=== PATIENT | male | born 1950 | race Caucasian/White ===

== ENCOUNTER → 2016-05-15 | Outpatient (REF) | payer MEDICARE, OTHER ==
[~2016-05-15] MED LIST: ALEV220C2 PO; ASPIRIN PO; GABAPOW41 PO; GLIM1TAB PO; INDAPAMIDE PO; LISIPOW PO; METFORMIN PO; NASONEX; SIMVPOW2 PO; TAMSULOSIN PO; TOPR25TA PO; VICOBULK PO
== END ==
LOC: M LAB REF 12:42
PROVIDERS: ATTEND Internal Medicine Medical Oncology
DX: C85.90 Non-Hodgkin lymphoma, unspecified, unspecified site (principal); Z79.899 Other long term (current) drug therapy

== ENCOUNTER → 2016-05-19 | Outpatient (CLI) | payer MEDICARE, OTHER ==
--- NOTE | 2016-05-20 09:21 | SLEEPCENT ---
DATE OF PROCEDURE: 05/19/2016 REQUESTING PROVIDER: Ann Mcgovern NP INTERPRETATION: Nocturnal polysomnography was performed for the titration of pressure therapy in this patient with known obstructive sleep apnea syndrome. For testing, the patient was fit with a ResMed Mirage nasal mask of standard size was used. An initial pressure of 9 cm of water pressure were applied to the circuit and the lights were extinguished. 6 hours and 43 minutes of data were reviewed. There were 343 minutes of sleep identified. Sleep latency was mildly prolonged at 14 minutes. Rapid eye movement (REM) latency was normal at 85 minutes. Sleep architecture was good. There were three REM periods noted. Overall sleep efficiency was 86%. The patient's electrocardiogram (EKG) showed a sinus rhythm with an average heart rate of 70 beats per minute. Electroencephalogram (EEG) showed fairly normal waveforms for awake and sleep. Respiratory events were best palliated with a CPAP to a pressure of +9. Persistence of limb activities was noted throughout the study, but arousals from movement events were few at 2.6 per hour. IMPRESSION: 1. Obstructive sleep apnea syndrome (G47.33). RECOMMENDATIONS: Nightly use of pressure therapy at 11 cm of water .
== END ==
LOC: M SLEEP 19:42
PROVIDERS: ATTEND Nurse Practitioner Adult Health
DX: G47.33 Obstructive sleep apnea (adult) (pediatric) (principal)

== ENCOUNTER → 2017-08-17 | Outpatient (CLI) | payer MEDICARE, OTHER ==
[~2017-08-17] MED LIST changes: -ALEV220C2 PO; -ASPIRIN PO; -GABAPOW41 PO; +GASTROGRAFIN SOLUTION 30ML (Q9963) As Ordered; -GLIM1TAB PO; -INDAPAMIDE PO; +ISOVUE-370 76% 100ML VIAL (Q9967) As Ordered; -LISIPOW PO; -METFORMIN PO; -NASONEX; -SIMVPOW2 PO; -TAMSULOSIN PO; -TOPR25TA PO; -VICOBULK PO
== END ==
LOC: M RAD 08:18
DX: R16.1 Splenomegaly, not elsewhere classified (principal); C85.90 Non-Hodgkin lymphoma, unspecified, unspecified site; R59.0 Localized enlarged lymph nodes; K76.89 Other specified diseases of liver; N28.1 Cyst of kidney, acquired
CPT/HCPCS: Q9963

== ENCOUNTER → 2017-09-30 | Outpatient (CLI) | payer MEDICARE, OTHER | LOC: M RAD 14:38 | DX: C85.93 Non-Hodgkin lymphoma, unspecified, intra-abdominal lymph nodes (principal); R16.1 Splenomegaly, not elsewhere classified; R59.1 Generalized enlarged lymph nodes | CPT/HCPCS: 74176 ==

== ENCOUNTER → 2018-02-01 | Outpatient (CLI) | payer MEDICARE, OTHER | LOC: M RAD 08:58 | DX: C85.90 Non-Hodgkin lymphoma, unspecified, unspecified site (principal) | CPT/HCPCS: Q9963 ==

== ENCOUNTER 2018-06-10 12:18 | Emergency (ER) | payer MEDICARE, OTHER ==
[~2018-06-10] VITALS: Ht 167.6 cm; Wt 97.3 kg
[~2018-06-10 12:18] MED LIST changes: +ALEV220C2 PO; +ASPI81TA85 PO; +ASPIRIN PO; +FLOM0.4C39 PO; +GABA-843 PO; +GABAPOW41 PO; -GASTROGRAFIN SOLUTION 30ML (Q9963) As Ordered; +GLIM1TAB PO; +INDA125TA PO; +INDAPAMIDE PO; -ISOVUE-370 76% 100ML VIAL (Q9967) As Ordered; +LANTINJ4 INJ; +LISI-538 PO; +LISIPOW PO; +METF10004 PO; +METFORMIN PO; +NASONEX; +SIMV20TA2 PO; +SIMVPOW2 PO; +TAMSULOSIN PO; +TOPR25TA PO; +VICOBULK PO
[2018-06-10] MEDS ORDERED: SYNT50TA (12:59)
[2018-06-10] MEDS ORDERED: LANTINJ4 SC (12:59)
[2018-06-10] MEDS ORDERED: FINA5TAB2 (12:59)
[2018-06-10] MEDS ORDERED: latanoprost (12:59)
[2018-06-10 13:06] LABS: BASO % 0.3 % (0.0-1.0); EOS # 0.1 10^3/uL (0.0-0.50); EOS % 1.4 % (0.0-3.0); HEMATOCRIT 42.5 % (42.0-52.0); HEMOGLOBIN 14.5 g/dl (13.5-17.5); LYMPH # 1.6 10^3/uL (1.5-4.5); LYMPH % 24.5 % (24.0-44.0); MEAN CORPUSCULAR HGB CONC 34.1 g/dl (32.0-36.5); MEAN CORPUSCULAR VOLUME 87.8 fl (80.0-96.0); MONO # 0.4 10^3/uL (0.0-0.8); MONO % 5.8 % (0.0-5.0); NEUTROPHILS # 4.3 10^3/uL (1.8-7.7); NEUTROPHILS % 67.1 % (36.0-66.0); PLATELET COUNT, AUTOMATED 179 10^3/uL (150-450); RED BLOOD COUNT 4.84 10^6/uL (4.30-6.10); WHITE BLOOD COUNT 6.4 10^3/uL (4.0-10.0)
[2018-06-10 13:22] LABS: INR 0.97
[2018-06-10 13:36] LABS: ALBUMIN 4.2 GM/DL (3.2-5.2); ALT/SGPT 33 U/L (12-78); BILIRUBIN,DIRECT 0.2 MG/DL (0.0-0.2); BLOOD UREA NITROGEN 20 MG/DL (7-18); CALCIUM LEVEL 8.8 MG/DL (8.8-10.2); CARBON DIOXIDE LEVEL 26 MEQ/L (21-32); CHLORIDE LEVEL 107 MEQ/L (98-107); CK-MB VALUE MASS < 1.0 NG/ML (<3.6); CPK CREATINE PHOSPHOKINASE 56 U/L (39-308); CREATININE FOR GFR 1.33 MG/DL (0.70-1.30); GLOMERULAR FILTRATION RATE 56.8 (>49); GLUCOSE, FASTING 125 MG/DL (70-100); MB/CK RELATIVE INDEX 1.79 (< OR =4); SODIUM LEVEL 140 MEQ/L (136-145); TOTAL PROTEIN 6.7 GM/DL (6.4-8.2)
[2018-06-10 13:37] LABS: FREE T4 1.15 NG/DL (0.76-1.46); LIPASE 453 U/L (73-393); TROPONIN I < 0.02 NG/ML (< 0.10)
--- NOTE | 2018-06-10 14:02 | REP ---
CHEST PA AND LATERAL: 06/10/2018. Clinical history: Chest pain. Comparison: 04/27/2015. Findings: Lungs are adequately inflated. There is no pleural effusion, lateral pleural thickening, apical scarring, dense consolidation or parenchymal mass. Heart size not enlarged. There is epicardial fat pad along the left heart border. There is no vascular redistribution or pulmonary edema. The aorta and airway are intact. Bony thorax shows some marginal osteophytes without compression deformity. No free air. Impression: 1. No acute cardiopulmonary disease, stable chest. Electronically Signed by Bashir Fairchild MD 06/10/2018 07:30 P
--- NOTE | 2018-06-10 14:15 | REP ---
KUB, ONE VIEW: HISTORY: Chest pain. A small amount of air is present in the intestine. There are no air fluid levels or dilated loops of intestine. There is no pneumoperitoneum. IMPRESSION: Nonspecific bowel gas pattern. Electronically Signed by Sundeep Morin MD 06/10/2018 02:19 P
[2018-06-10 14:34] VITALS: BP 125/66
--- NOTE | 2018-06-10 18:10 | ECGEPIP ---
Stationary ECG Study [facility] - ED Test Date: 2018-06-10 Pat Name: TENZIN CH Department: Room: - Gender: M Brim Flexer: CAMILO : 1950 Requested By: FLOR Riojas Order Number: [id number] Reading MD: Myles Jackson Measurements Intervals [place] Rate: 79 P: 64 AL: 174 QRS: 10 QRSD: 85 T: 72 QT: 329 QTc: 378 Interpretive Statements SINUS RHYTHM LOW QRS VOLTAGE IN PRECORDIAL LEADS NONSPECIFIC T-WAVE ABNORMALITY POSSIBLE PRIOR INFERIOR INFARCT SIMILAR TO 06/07/12 Electronically Signed On 06-10-2018 18:10:25 EST by Myles Jackson
== END 2018-06-10 14:36 | disposition home or self-care (01) ==
LOC: M ED 12:18
DX: R10.9 Unspecified abdominal pain (principal); I10 Essential (primary) hypertension; E11.9 Type 2 diabetes mellitus without complications; E78.5 Hyperlipidemia, unspecified; C85.80 Other specified types of non-Hodgkin lymphoma, unspecified site; Z92.21 Personal history of antineoplastic chemotherapy; I30.9 Acute pericarditis, unspecified; Z79.82 Long term (current) use of aspirin; Z79.4 Long term (current) use of insulin; Z79.899 Other long term (current) drug therapy

== ENCOUNTER → 2018-09-28 | Outpatient (CLI) | payer MEDICARE, OTHER ==
[~2018-09-28] MED LIST changes: +FINA5TAB2; +LANTINJ4 SC; +METO-1 PO; +SYNT50TA; -TOPR25TA PO; +latanoprost
--- NOTE | 2018-09-28 10:28 | REP ---
RIGHT SHOULDER, THREE VIEWS: HISTORY: Pain. There is no acute fracture or dislocation. The glenohumeral joint space is normal in appearance. There is mild narrowing of the acromioclavicular joint space with associated osteophyte formation. IMPRESSION: Degenerative change as described above. Electronically Signed by Sundeep Morin MD 09/28/2018 10:31 A
== END ==
LOC: M WUC 09:45
PROVIDERS: ATTEND Physician Assistant
DX: M19.011 Primary osteoarthritis, right shoulder (principal); M25.711 Osteophyte, right shoulder

== ENCOUNTER → 2018-12-19 | Outpatient (CLI) | payer MEDICARE, OTHER ==
--- NOTE | 2018-12-19 12:49 | REP ---
Clinical: Cough . Comparison: 06/10/2018 . Findings: The mediastinum and cardiac silhouette are stable and cardiomegaly is again noted. The lung lee demonstrate chronic interstitial changes without acute consolidation, effusion, or pneumothorax. Skeletal structures are intact. Impression: No acute cardiopulmonary process appreciated. Electronically Signed by Ray Faulkner MD 12/19/2018 12:40 P
== END ==
LOC: M SMT 12:17 → M WUC 12:17
PROVIDERS: ATTEND Family Medicine
DX: R05 Cough (principal)

== ENCOUNTER → 2019-04-27 | Outpatient (CLI) | payer MEDICARE, OTHER ==
[~2019-04-27] MED LIST changes: +GLIM1TAB2 PO; -SIMV20TA2 PO; +SIMV20TA22 PO
--- NOTE | 2019-04-27 10:36 | REP ---
ULTRASOUND ABDOMEN: Real-time sonographic evaluation of the abdomen was performed. Gallbladder demonstrates no evidence of intraluminal sludge or calculi, wall thickening or pericholecystic fluid. There is no significant intrahepatic or extrahepatic biliary dilation. Common bile duct is upper limits of normal in diameter at 7 mm. The liver demonstrates heterogenous increased echotexture diffusely suggesting diffuse fibro fatty infiltration. There are multiple cystic structures as seen on prior CT of 11/10/2018, the largest is in the left lobe with internal thin septations 2.7 x 2.9 x 1.7 cm and right lobe 4.6 x 4.5 x 4.2 cm. Visualized pancreas is grossly unremarkable but not well seen due to overlying bowel gas. Spleen is mild to moderately enlarged with no intrinsic lesion identified. It measures 13.9 x 6.4 x 13.5 cm for a splenic index of 1201. Kidneys are normal in size and echotexture, right kidney measuring 11.5 x 7.0 x 6.0 cm and left kidney 11.5 x 6.0 x 5.6 cm. There is no hydronephrosis bilaterally. 7 mm cyst is seen in the left lower pole. Abdominal aorta could not be visualized. No ascites is seen. IMPRESSION: Diffuse fibrofatty infiltration of the liver with multiple liver cysts. Mild to moderate splenomegaly. Electronically Signed by Trent Banda MD 04/27/2019 08:01 P
== END ==
LOC: M RAD 08:43
PROVIDERS: ATTEND Internal Medicine Hematology
DX: C83.07 Small cell B-cell lymphoma, spleen (principal)

== ENCOUNTER → 2019-12-11 | Outpatient (REF) | payer MEDICARE, OTHER ==
[~2019-12-11] MED LIST changes: -ASPI81TA85 PO; +ASPI81TA86 PO; -GLIM1TAB2 PO; +GLIM1TAB4 PO; +XALA0.007 OU
== END ==
LOC: M LAB REF 13:00
PROVIDERS: ATTEND Nurse Practitioner Family
DX: M54.5 Low back pain (principal)

== ENCOUNTER → 2020-03-06 | Outpatient (CLI) | payer SELFPAY | LOC: M LABSMTC 10:18 | PROVIDERS: ATTEND Pediatrics | DX: Z20.828 Contact with and (suspected) exposure to other viral communicable diseases (principal) ==

== ENCOUNTER 2021-02-18 09:45 | Emergency (ER) | payer MEDICARE, OTHER ==
[~2021-02-18] VITALS: Ht 167.6 cm; Wt 102.1 kg
[~2021-02-18 09:45] MED LIST changes: +ECOT81TA5 PO; +GABA-282 PO; -GABA-843 PO; -LISI-538 PO; +LISI20TA33 PO
--- OUTSIDE RECORDS SUMMARY | 2021-02-18 09:50 | CCD | Continuity of Care Document ---
Author Author Kermit RIVERA M.D. 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 Onset: 015 Pure hypercholesterolemia Lars Rivera M.D. Onset: 2014 Benign essential hypertension Lars Rivera M.D. Onset: Obstructive sleep apnea syndrome Lars Rivera M.D. Onset: 09/12/2014 Allergic rhinitis Lars Rivera M.D. Onset: 09/12/2014 Degenerative joint disease involving multiple joints Lars Rivera M.D. Onset: 09/12/2014 Splenomegaly Lars Rivera M.D. Onset: 09/12/2014 Benign localized hyperplasia of prostate Pedro Luis Flaherty Onset: 09/12/2014 Anemia Lars Rivera M.D. Onset: 09/12/2014 Adenomatous polyp of colon Lars Rivera M.D. Onset: 09/13 Note: 2 new adenomatous polyps on colono scopy 08/2014 Dr Wilson - noted by him repeat 3 yrs or PRN. Essential hypertension Lars Rivera M.D. Onset: 5 Benign prostatic hyperplasia without outflow obstruction Calixto Rivera M.D. Onset: 03/19/2015 Brachial neuritis Lars Rivera M.D. Onset: 03/19/2015 Unspecified osteoarthritis, unspecified site Lars Rivera M.D. Onset: 03/19/2015 Social History Type Date Description Comments Sex Unknown ETOH Use Rarely consumes alcohol Tobacco Use Start: Unknown Patient has never smoked Allergies and adverse reactions Description No Known Drug Allergies Medications Active Medications SIG Qnty Indications Ordering Provide r Date Onetouch Club Lancets [place] Misc test blood sugar twice a day dx E11.9 200units Lars monzon M.D. 01/07/2021 Synthroid 75mcg Tablets [place] 90tabs Lars Rivera M.D. 12/17/2018 Onetouch Ultra 2 w/Device Kit test twice a day and as directed e11.9 1units E78.00 Lars Rivera M.D. 0 12/17/2018 BD Autoshield Duo 30G X 5 mm Misc use twice a day E11.9 180units E11.9 Lars Rivera M.D. 018 Zyrtec Allergy 10mg Capsules 1 by mouth every day 30caps Lars Rivera M.D. 04/07/2017 Lantus Solostar 100U nit/ML Solution Pen-Inject 14 units in the in the morning and 12 units at night daily 45ml Lars Rivera M.D. 06/19/2015 Glimepiride 1mg Tablets 1 in in the morning and 1 with dinner 180tabs Lars Rivera M.D. 0 09/12/2014 Lisinopril 20mg Tablets 1 by mouth every at night 90tabs Lars Rivera M.D. 09/12/2014 Tamsulosin HCL 0.4mg Capsules 2 daily 1/2 hour after same meal in the at night 180eliana jackson M.D. 09/12/2014 Finasteride 5mg Tablets 1 by mouth every day 90tabs Lars Rivera M.D. 09/12/2014 Gabapentin 300mg Capsules 1 by mouth every morning 90caps Lars Rivera M.D. 09/12/2014 Aspir-[address] 1 by mouth every day 90tabs Lars F. White, M.D. 09/12/2014 Ibuprofen 800mg Tablets as needed 90taamandeep Rivera M.D. 09/12/2014 Indapamide 1.25mg Tablets 1 by mouth every night 90taamandeep Rivera M.D. 09/12/2014 Metformin HCL 1000mg Tablets take one tablet by mouth twice a day 180tabs Lars Rivera M.D. 09/12/2014 Fluticasone Propionate 50mcg/Act Suspension 2 sprays each nostril daily Unknown Medications Administered in Office Medication SIG Qnty Indications Ordering Provider Date Administration Of Flu Vaccine Inj ection Lars Rivera M.D. 03/19/2016 Administration Of Flu Vaccine Inj ection Lars Rivera M.D. 03/19/2015 Immunizations CPT Code Status Date Vaccine Lot # [id number] Given 01/31/2020 Shingrix Zoster Vaccine (HZV), Recombinant, Subunit, Adjuvanted U-Flu Given 01/18/2020 Influenza,Unspecified U-Flu Given 02/07/2018 Influenza,Unspecified U-Flu Given 02/28/2017 Influenza,Unspecified Q2037 Given 03/19/2016 Fluvirin Virus Vaccine 39930 01 Q2037 Given 03/19/2015 Fluvirin Virus Vaccine 69045 01 99001 Given 01/18/2014 Influenza Virus Vaccine 48842 Given 05/27/2013 Pneumovax 23 [id number] Given 05/27/2012 Adacel- Tetanus Diphtheria P ertussis 02573 Refused 01/18/2014 Zoster Vaccine 16776 Refused 05/27/2013 Influenza Virus Vaccine Vital Signs Date Vital Result Comment 01/07/2021 10:55am BP Systolic 128 mmHg BP Diastolic 70 mmHg Heart Rate 64 /min Height 65.5 inches 5'5.50" Weight 223.00 lb BMI (Body Mass Index) 36.5 kg/m2 08/13/2020 10:29am BP Systolic 122 mmHg BP Diastolic 68 mmHg Heart Rate 72 /min Height 65.5 inches 5'5.50" Weight 230.00 lb BMI (Body Mass Index) 37.7 kg/m2 Results Test Acquired Date Facility Test Result H/L Range Note Microalbumin/Creatinine Urine 01/07/2021 [facility], [place] [facility]: [place] [address] [phone] Microalbumin Urine 8.1 mg/L 1.3 - 20.0 Urine Creatinine 69.8 mg/dL 30.0 - 125.0 Microalb/Creat Ratio 11.6 ug/mg 0.0 - 30.0 Complete Blood Count 01/04/2021 [facility], [place]: [place] [address] [phone] WBC 4.6 x10*3/UL 4.1 - 10.9 RBC 4.73 x10*6/UL 4.20 - 6.30 Hemoglobin 14.1 g/dL 12.0 - 18.0 Hematocrit 41.4 % 37.0 - 51.0 MCV 87.5 fL 80.0 - 97.0 MCH 29.9 pg 26.0 - 32.0 MCHC 34.2 g/dL 31.0 - 38.0 RDW 12.7 % 11.6 - 13.7 PLT 182 x10*3/UL 140 - 440 MPV 8.4 FL 7.8 - 11.0 Lymph % 33.9 % 10.0 - 58.5 Mid % 6.1 % 1.7 - 9.3 Neut % 60.0 % 37.0 - 92.0 Lymph # 1.5 x10*3/UL 0.6 - 4.1 Mid # 0.4 x10*3/UL 0.1 - 0.6 Neut # 2.7 x10*3/UL 2.0 - 7.8 A1c 01/04/2021 [facility] , [place]: [place] [address] [phone] Hba1c 6.7 % High <5.7 1 Est Avg Glucose 146 mg/dL High 60 - 110 Comprehensive Chem Profile 01/04/2021 [facility], [place]: [place] [address] [phone] Glucose 122 mg/dL High 74 - 99 2 BUN 22 mg/dL High 7 - 18 Creatinine 1.1 mg/dL 0.6 - 1.3 Sodium 142 mEq/L 136 - 145 Potassium 4.1 mEq/L 3.5 - 5.1 Chloride 106 mEq/L 98 - 107 Carbon Dioxide 31 mEq/L 21 - 32 Calcium 9.0 mg/dL 8.5 - 10.1 Alk. Phosphatase 63 mg/dL 46 - 116 Total Bilirubin 0.8 mg/dL 0.2 - 1.0 Ast (Sgot) 19 U/L 15 - 37 Alt (SGPT) 54 U/L 12 - 78 Albumin 3.8 g/dL 3.4 - 5.0 Total Protein 6.3 g/dL Low 6.4 - 8.2 A/G Ratio 1.52 CALC 1.00 - 1.90 GFR >= 60 mL/min >60 GFR >= 60 mL/min >60 3 Lipid Profile 01/04/2021 [facility] , [place]: Dr [place]ise[place], [place] [id number] [phone] Cholesterol 188 mg/dL 131 - 200 Triglycerides 261 mg/dL High 30 - 150 HDL Cholesterol 37 mg/dL 35 - 60 LDL (Calculated) 99 CALC 50 - 159 Laboratory test finding 01/04/2021 [facility], [place]: [place] [address] [phone] Thyroid Stimulating Hormone 3.75 uIU/mL High 0.3 6 - 3.74 Laboratory test finding 01/04/2021 [facility] [employer] [place]: [place] [address] [phone] PSA 1.42 ng/mL <4.00 4 Complete Blood Count 08/10/2020 [facility], [place]: Dr Eliseo [place], [place] [id number] [phone] WBC 5.2 x10*3/UL 4.1 - 10.9 RBC 5.04 x10*6/UL 4.20 - 6.30 Hemoglobin 15.0 g/dL 12.0 - 18.0 Hematocrit 43.6 % 37.0 - 51.0 MCV 86.6 fL 80.0 - 97.0 MCH 29.7 pg 26.0 - 32.0 MCHC 34.3 g/dL 31.0 - 38.0 RDW 13.1 % 11.6 - 13.7 PLT 205 x10*3/UL 140 - 440 MPV 8.7 FL 7.8 - 11.0 Lymph % 28.3 % 10.0 - 58.5 Mid % 5.7 % 1.7 - 9.3 Neut % 66.0 % 37.0 - 92.0 Lymph # 1.4 x10*3/UL 0.6 - 4.1 Mid # 0.4 x10*3/UL 0.1 - 0.6 Neut # 3.4 x10*3/UL 2.0 - 7.8 A1c 08/10/2020 [facility] , [place]: [place] [address] [phone] Hba1c 7.0 % High <5.7 5 Est Avg Glucose 154 mg/dL High 60 - 110 Comprehensive Chem Profile 08/10/2020 [facility], [place]: [place] [address] [phone] Glucose 168 mg/dL High 74 - 99 6 BUN 25 mg/dL High 7 - 18 Creatinine 1.2 mg/dL 0.6 - 1.3 Sodium 139 mEq/L 136 - 145 Potassium 3.9 mEq/L 3.5 - 5.1 Chloride 102 mEq/L 98 - 107 Carbon Dioxide 29 mEq/L 21 - 32 Calcium 8.9 mg/dL 8.5 - 10.1 Alk. Phosphatase 70 mg/dL 46 - 116 Total Bilirubin 0.9 mg/dL 0.2 - 1.0 Ast (Sgot) 20 U/L 15 - 37 Alt (SGPT) 48 U/L 12 - 78 Albumin 4.2 g/dL 3.4 - 5.0 Total Protein 6.9 g/dL 6.4 - 8.2 A/G Ratio 1.56 CALC 1.00 - 1.90 GFR 60 mL/min Low >60 GFR >= 60 mL/min >60 7 Lipid Profile 08/10/2020 [facility] , [place]: [place] [address] [phone] Cholesterol 209 mg/dL High 131 - 200 Triglycerides 338 mg/dL High 30 - 150 HDL Cholesterol 37 mg/dL 35 - 60 LDL (Calculated) 104 CALC 50 - 159 Laboratory test finding 08/10/2020 [facility] [employer] [place] [employer]: [place] [address] [phone] Thyroid Stimulating Hormone 3.73 uIU/mL 0.3 6 - 3.74 1 Lab Result Notes: Pre-Diabetes 5.7 - 6.4 % Diabetes = or > 6.5% 2 100-125 mg/dL PRE-DIABET ES/FASTING >126 mg/dL DIABETES/FASTING 3 CHRONIC KIDNEY DISEASE STAGI NG PER NKF STAGE I & II GFR >= 60 NORMAL TO MILDLY DECREASED STAGE III GFR 30-59 MODERATELY DECREASED STAGE IV GFR 15-29 SEVERELY DECREASED STAGE V GFR <15 VERY LITTLE GFR LEFT ESRD GFR <15 ON HAND ROUNDER 4 This assay was performed on the [email or web address] EXL using the B- Galactosidase/CPRG methodology and should not be compared interchangeably with other methods. The PSA should not be used alone as a screening test for the presence or absence of malignant disease. 5 Lab Result Notes: Pre-Diabetes 5.7 - 6.4 % Diabetes = or > 6.5% 6 100-125 mg/dL PRE-DIABET ES/FASTING >126 mg/dL DIABETES/FASTING 7 CHRONIC KIDNEY DISEASE STAGI NG PER NKF STAGE I & II GFR >= 60 NORMAL TO MILDLY DECREASED STAGE III GFR 30-59 MODERATELY DECREASED STAGE IV GFR 15-29 SEVERELY DECREASED STAGE V GFR <15 VERY LITTLE GFR LEFT ESRD GFR <15 ON HAND ROUNDER Procedures Date Code Description Status 08/13/2020 21567 Office/Outpatient Established Mo d MDM 30-39 Min Completed 05/28/2018 [id number] Diabetic Retinal Eye Exam [facility] 05/29/2017 [id number] Diabetic Retinal Eye Exam [facility] 09/05/2014 [id number] Colonoscopy Completed Medical Devices Description No Information Available Encounters Type Date Location Provider Dx Diagnosis Office Visit 08/13/2020 10:30a [facility] Lars Rivera M.D. 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 01/07/2021 I10 Essential (primary) hypertension Lars Rivera M.D. 01/07/2021 E03.9 Hypothyroidism, unspecified Tata Rivera M.D. 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 01/07/2021 N40.0 Benign prostatic hyperplasia wit hout lower urinary tract sym Lars Rivera M.D. 01/07/2021 J30.9 Allergic rhinitis, unspecified Bryan Rivera M.D. 01/07/2021 E11.9 Type 2 diabetes mellitus without complications Lars Rivera M.D. 01/07/2021 G47.33 Obstructive sleep apnea (adult) (pediatric) Lars Rivera M.D. 01/07/2021 M19.90 Unspecified osteoarthritis, unsp ecified site Lars Rivera M.D. 01/07/2021 R23.8 Other skin changes Lars gallegos M.D. 01/07/2021 H40.9 Unspecified glaucoma Lars jackson M.D. 01/07/2021 M54.5 Low back pain Lars Rivera M.D. 01/04/2021 E11.65 Type 2 diabetes mellitus with hy perglycemia Lars Rivera M.D. 01/04/2021 E11.65 Type 2 diabetes mellitus with hy perglycemia Lab Schedule 01/04/2021 Z79.4 technician terminal and repeater (current) use of insul in Lars Rivera M.D. 01/04/2021 Z79.4 [facility]PC (current) use of insul in Lab Schedule 01/04/2021 I10 Essential (primary) hypertension Lars Rivera M.D. 01/04/2021 I10 Essential (primary) hypertension Lab Schedule 01/04/2021 E78.00 Pure hypercholesterolemia, unspe cified Lars Rivera M.D. 01/04/2021 E78.00 Pure hypercholesterolemia, unspe cified Lab Schedule 01/04/2021 E03.9 Hypothyroidism, unspecified Tata Rivera M.D. 01/04/2021 E03.9 Hypothyroidism, unspecified Lab Schedule 01/04/2021 Z12.5 Encounter for screening for hetal gnant neoplasm of prostate Lars Rivera M.D. 01/04/2021 Z12.5 Encounter for screening for hetal gnant neoplasm of prostate Lab Schedule 08/13/2020 E11.65 Type 2 diabetes mellitus with hy perglycemia Lars Rivera M.D. 08/13/2020 Z79.4 technician terminal and repeater (current) use of insul in Lars Rivera M.D. 08/13/2020 E78.00 Pure hypercholesterolemia, unspe cified Lars Rivera M.D. 08/13/2020 I10 Essential (primary) hypertension Lars Rivera M.D. 08/13/2020 E03.9 Hypothyroidism, unspecified Tata Rivera M.D. 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 08/13/2020 N40.0 Benign prostatic hyperplasia wit hout lower urinary tract sym Lars Rivera M.D. 08/13/2020 J30.9 Allergic rhinitis, unspecified Bryan Rivera M.D. 08/13/2020 H40.9 Unspecified glaucoma Lars jackson M.D. 08/13/2020 G47.33 Obstructive sleep apnea (adult) (pediatric) Lars Rivera M.D. 08/13/2020 M19.90 [facility] M.[facility]. 08/10/2020 E11.9 Type 2 diabetes mellitus without complications Lars Rivera M.D. 08/10/2020 E11.9 Type 2 diabetes mellitus without complications Lab Schedule 08/10/2020 I10 Essential (primary) hypertension Lars Rivera M.D. 08/10/2020 I10 Essential (primary) hypertension Lab Schedule 08/10/2020 E78.00 Pure hypercholesterolemia, unspe cified Lars Rivera M.D. 08/10/2020 E78.00 Pure hypercholesterolemia, unspe cified Lab Schedule 08/10/2020 E03.9 Hypothyroidism, unspecified Tata Rivera M.D. 08/10/2020 E03.9 Hypothyroidism, unspecified Lab Schedule Plan of Treatment Future Appointment(s):* 09/06/2021 8:10 am - Lab Schedule at [facility] * 09/11/2021 9:30 am - Lars Rivera M.D. at [facility] * 08/21/2021 9:00 am - ROSEMARY Mann at [facility] 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
--- OUTSIDE RECORDS SUMMARY | 2021-02-18 09:50 | CCD | Continuity of Care Document ---
Author Author Kermit RIVERA M.D. Organization Unknown Address [phone] [address] Phone [phone] Care Team Providers Care Grease Renderer Name Role Phone Lars Rivera MD AUTM [phone] Arash Bond MD AUTM [phone] Gerson Carter MD AUTM [phone] Leana Isabel OD AUTM Unavailable Problems Active [...] Tablets 1 in in the morning and 2 with dinner 270tabs Lars Rivera M.D. 0 09/12/2014 Lisinopril 20mg Tablets 1 by mouth every at night 90tabs Lars Rivera M.D. 09/12/2014 Tamsulosin HCL 0.4mg Capsules 2 daily 1/2 hour after same meal in the at night 180eliana jackson M.D. 09/12/2014 Finasteride 5mg Tablets 1 by mouth every day 90tabs Lars Rivera M.D. 09/12/2014 Gabapentin 300mg Capsules 1 by mouth every morning 90capeliza Rivera M.D. 09/12/2014 Aspir-[address] [...] CPT Code Status Date Vaccine Lot # 33471 Given 01/31/2020 Shingrix Zoster Vaccine (HZV), Recombinant, Subunit, Adjuvanted U-Flu Given 01/18/2020 Influenza,Unspecified U-Flu Given 02/07/2018 Influenza,Unspecified U-Flu Given 02/28/2017 Influenza,Unspecified [id number] Given 03/19/2016 Fluvirin Virus Vaccine 91724 01 Q2037 Given 03/19/2015 Fluvirin Virus Vaccine 65022 01 93592 Given 01/18/2014 Influenza Virus Vaccine 42821 Given 05/27/2013 Pneumovax 23 75705 Given 05/27/2012 Adacel- Tetanus Diphtheria P ertussis 71828 Refused 01/18/2014 Zoster Vaccine 54427 Refused 05/27/2013 Influenza Virus Vaccine Vital Signs [...] Result H/L Range Note Microalbumin/Creatinine Urine 01/07/2021 [facility], Cook Mess: [place] [address] [phone] Microalbumin Urine 8.1 mg/L 1.3 - 20.0 Urine Creatinine 69.8 mg/dL 30.0 - 125.0 Microalb/Creat Ratio 11.6 ug/mg 0.0 - 30.0 Complete Blood Count 01/04/2021 [facility], Cook Mess: [place] [address] [phone] WBC 4.6 x10*3/UL 4.1 - 10.9 RBC [...] 2.7 x10*3/UL 2.0 - 7.8 A1c 01/04/2021 [facility] , Cook Mess: [place] [address] [phone] Hba1c 6.7 % High <5.7 1 Est Avg Glucose 146 mg/dL High 60 - 110 Comprehensive Chem Profile 01/04/2021 [facility], Cook Mess: [place] [address] [phone] Glucose 122 mg/dL High 74 - 99 [...] 60 mL/min >60 3 Lipid Profile [facility]/04[facility]2021 [facility] [place] [id number] [phone] Cholesterol 188 mg/dL 131 - 200 Triglycerides 261 mg/dL High 30 - 150 HDL Cholesterol 37 mg/dL 35 - 60 LDL (Calculated) 99 CALC 50 - 159 Laboratory test finding 01/04/2021 [facility] [employer] [facility] Cook Mess: [place] [address] [phone] Thyroid Stimulating Hormone 3.75 uIU/mL High 0.3 6 - 3.74 Laboratory test finding 01/04/2021 [facility] [employer] [facility] Cook Mess: [place] [address] [phone] PSA 1.42 ng/mL <4.00 4 1 Lab Result Notes: Pre-Diabetes 5.7 - [...] LITTLE GFR LEFT ESRD GFR <15 ON WEB SITE SPECIALIST 4 This assay was performed on the Siem[employer] EXL using the B- Galactosidase/CPRG methodology and should not be compared interchangeably with other methods. The PSA should not be used alone as a screening test for the presence or absence of malignant disease. Procedures Date Code Description Status 05/28/2018 [id number] Diabetic Retinal Eye Exam Comple cameron 05/29/2017 [id number] Diabetic Retinal Eye Exam Comple cameron 09/05/2014 [id number] Colonoscopy Completed Medical Devices Description No Information Available Encounters Description No Information Available Assessments Date Code Description Provider 01/07/2021 E78.00 Pure hypercholesterolemia, unspe cified Lars Rivera M.D. 01/07/2021 I10 Essential (primary) hypertension Lars Rivera M.D. 01/07/2021 E03.9 Hypothyroidism, unspecified Tata Rivera M.D. 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 01/07/2021 N40.0 Benign prostatic hyperplasia wit hout lower urinary tract sym Lars Rivera M.D. 01/07/2021 J30.9 Allergic rhinitis, unspecified Bryan Rivera M.D. 01/07/2021 E11.9 Type 2 diabetes mellitus without complications Lars Rivera M.D. 01/07/2021 G47.33 Obstructive sleep apnea (adult) (pediatric) Lars Rivera M.D. 01/07/2021 M19.90 Unspecified osteoarthritis, [facility] ecified site Lars Rviera M.D. 01/07/2021 R23.8 Other skin changes Lars gallegos M.D. 01/07/2021 H40.9 Unspecified glaucoma Lars jackson M.D. 01/07/2021 M54.5 Low back pain Lars Rivera M.D. 01/04/2021 E11.65 Type 2 diabetes mellitus with hy perglycemia Lars Rivera M.D. 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 * 09/11/2021 9:30 am - Lars Rivera M.D. at [facility] * 08/21/2021 9:00 am - ROSEMARY Mann [facility] 01/07/2021 - Lars Rivera M.D.* E78.00 [...]
--- OUTSIDE RECORDS SUMMARY | 2021-02-18 09:50 | CCD | Continuity of Care Document ---
Author Author Lab Schedule, Kermit French Organization Unknown Address [address] [address] Phone Unavailable Care Team Providers Care Layout Worker Name Role Phone Lars Lindquist MD AUTM [phone] Arash Bond MD AUTM [phone] Gerson Carter MD AUTM [phone] Leana Isabel OD AUTM Unavailable Problems Active Problems Provider Date Type 2 diabetes mellitus Lars Lindquist M.D. Onset: 015 Pure hypercholesterolemia Lars Lindquist M.D. Onset: 2014 Benign essential hypertension Lars Lindquist M.D. Onset: Obstructive sleep apnea syndrome Lars Lindquist M.D. Onset: 09/12/2014 Allergic rhinitis Lars Lindquist M.D. Onset: 09/12/2014 Degenerative joint disease involving multiple joints Lars Lindquist M.D. Onset: 09/12/2014 Splenomegaly Lars Lindquist M.D. Onset: 09/12/2014 Benign localized hyperplasia of prostate Pedro Luis Flaherty Onset: 09/12/2014 Anemia Lars Lindquist M.D. Onset: 09/12/2014 Adenomatous polyp of colon Lars Lindquist M.D. Onset: 09/13 Note: 2 new adenomatous polyps on colono scopy 08/2014 Dr Wilson - noted by him repeat 3 yrs or PRN. Essential hypertension Lars Lindquist M.D. Onset: 5 Benign prostatic hyperplasia without outflow obstruction Calixto Lindquist M.D. Onset: 03/19/2015 Brachial neuritis Lars Lindquist M.D. Onset: 03/19/2015 Unspecified osteoarthritis, unspecified site Lars Lindquist M.D. Onset: 03/19/2015 Social History Type Date [...] 75mcg Tablets [place] 90tabs Lars Lindquist M.D. 12/17/2018 Onetouch Ultra 2 w/Device Kit test twice a day and as directed e11.9 1units E78.00 Lars Lindquist M.D. 0 12/17/2018 BD Autoshield Duo 30G X 5 mm Misc use twice a day E11.9 180units E11.9 Lars Lindquist M.D. 018 Zyrtec Allergy 10mg Capsules 1 by mouth every day 30caps Lars Lindquist M.D. 04/07/2017 Lantus Solostar 100U nit/ML Solution Pen-Inject 14 units in the in the morning and 12 units at night daily 45ml Lars Lindquist M.D. 06/19/2015 Glimepiride 1mg Tablets 1 in in the morning and 1 with dinner 180tabs Lars Lindquist M.D. 0 09/12/2014 Lisinopril 20mg Tablets 1 by mouth every at night 90tabs Lars Lindquist M.D. 09/12/2014 Tamsulosin HCL 0.4mg Capsules 2 daily 1/2 hour after same meal in the at night 180caps Lars jackson M.D. 09/12/2014 Finasteride 5mg Tablets 1 by mouth every day 90tabs Lars Lindquist M.D. 09/12/2014 Gabapentin 300mg Capsules 1 by mouth every morning 90caps Lars Lindquist M.D. 09/12/2014 [address]ir-[address] 1 by mouth every day 90tabs Lars Lindquist M.D. 09/12/2014 Ibuprofen 800mg Tablets as needed 90tabs Lars Lindquist M.D. 09/12/2014 Indapamide 1.25mg Tablets 1 by mouth every night 90tabs Lars Lindquist M.D. 09/12/2014 Metformin HCL 1000mg Tablets take one tablet by mouth twice a day 180tabs Lars Lindquist M.D. 09/12/2014 Fluticasone Propionate 50mcg/Act Suspension 2 sprays each nostril daily Unknown Medications Administered in Office Medication SIG Qnty Indications Ordering Provider Date Administration Of Flu Vaccine Inj mignonion Lars Lindquist M.D. 03/19/2016 Administration Of Flu Vaccine Inj ection Lars Lindquist M.D. 03/19/2015 Immunizations CPT Code Status Date Vaccine Lot # [id number] Given 01/31/2020 Shingrix Zoster Vaccine (HZV), Recombinant, Subunit, Adjuvanted U-Flu Given 01/18/2020 Influenza,Unspecified U-Flu Given 02/07/2018 Influenza,Unspecified U-Flu Given 02/28/2017 Influenza,Unspecified Q2037 Given 03/19/2016 Fluvirin Virus Vaccine 67119 01 Q2037 Given 03/19/2015 Fluvirin Virus Vaccine 02969 01 37644 Given 01/18/2014 Influenza Virus Vaccine 57137 Given 05/27/2013 Pneumovax 23 30443 Given 05/27/2012 Adacel- Tetanus Diphtheria P ertussis 64177 Refused 01/18/2014 Zoster Vaccine 87562 Refused 05/27/2013 Influenza Virus Vaccine Vital Signs [...] Result H/L Range Note Microalbumin/Creatinine Urine 01/07/2021 [facility] Medical Liaison: [place] [address] [phone] Microalbumin Urine 8.1 mg/L 1.3 - 20.0 Urine Creatinine 69.8 mg/dL 30.0 - 125.0 Microalb/Creat Ratio 11.6 ug/mg 0.0 - 30.0 Complete Blood Count 01/04/2021 [facility] Medical Liaison: [place] [address] [phone] WBC 4.6 x10*3/UL 4.1 - 10.9 RBC [...] 2.7 x10*3/UL 2.0 - 7.8 A1c 01/04/2021 [facility] Medical Liaison: [place] [address] [phone] Hba1c 6.7 % High <5.7 1 Est Avg Glucose 146 mg/dL High 60 - 110 Comprehensive Chem Profile 01/04/2021 [facility] Medical Liaison: [place] [address] [phone] Glucose 122 mg/dL High 74 - 99 [...] 60 mL/min >60 3 Lipid Profile 01/04/2021 [facility] Medical Liaison: Dr [place] [id number] [phone] Cholesterol 188 mg/dL 131 - 200 Triglycerides 261 mg/dL High 30 - 150 HDL Cholesterol 37 mg/dL 35 - 60 LDL (Calculated) 99 CALC 50 - 159 Laboratory test finding 01/04/2021 [facility] Medical Liaison: [place] [address] [phone] Thyroid Stimulating Hormone 3.75 uIU/mL High 0.3 6 - 3.74 Laboratory test finding 01/04/2021 [facility] Ackerman Medical Liaison: [place] [address] [phone] PSA 1.42 ng/mL <4.00 4 Complete Blood Count 08/10/2020 [facility]man Medical Liaison: Dr Eliseo Mult[place] [address] [phone] WBC 5.2 x10*3/UL 4.1 - 10.9 RBC [...] 3.4 x10*3/UL 2.0 - 7.8 A1c 08/10/2020 [facility] , Medical Liaison: [place] [address] [phone] Hba1c 7.0 % High <5.7 5 Est Avg Glucose 154 mg/dL High 60 - 110 Comprehensive Chem Profile 08/10/2020 [facility], Medical Liaison: [place] [address] [phone] Glucose 168 mg/dL High 74 - 99 [...] 60 mL/min >60 7 Lipid Profile 08/10/2020 [facility] , Medical Liaison: Dr [place] [address] [phone] Cholesterol 209 mg/dL High 131 - 200 Triglycerides 338 mg/dL High 30 - 150 HDL Cholesterol 37 mg/dL 35 - 60 LDL (Calculated) 104 CALC 50 - 159 Laboratory test finding 08/10/2020 [facility] [employer] [facility] valdovinos Medical Liaison: [place] [address] [phone] Thyroid Stimulating Hormone 3.73 uIU/mL 0.3 6 [...] LITTLE GFR LEFT ESRD GFR <15 ON CUTTER AND PRESSER 4 This assay was performed on the [employer] EXL using the B- Galactosidase/CPRG methodology and [...] LITTLE GFR LEFT ESRD GFR <15 ON CUTTER AND PRESSER Procedures Date Code Description Status 08/13/2020 18777 Office/Outpatient Established Mo d MDM 30-39 Min Completed 05/28/2018 [id number] Diabetic Retinal Eye Exam [facility] 05/29/2017 [id number] Diabetic Retinal Eye Exam [facility] 09/05/2014 [id number] Colonoscopy Completed Medical Devices Description No Information Available Encounters Type Date Location Provider Dx Diagnosis Office Visit 08/13/2020 10:30a [facility] Lars Lindquist M.D. 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 01/07/2021 I10 Essential (primary) hypertension Lars Lindquist M.D. 01/07/2021 E03.9 Hypothyroidism, unspecified Tata Lindquist M.D. 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 01/07/2021 N40.0 Benign prostatic hyperplasia wit hout lower urinary tract sym Lars Lindquist M.D. 01/07/2021 J30.9 Allergic rhinitis, unspecified Bryan Lindquist M.D. 01/07/2021 E11.9 Type 2 diabetes mellitus without complications Lars Lindquist M.D. 01/07/2021 G47.33 Obstructive sleep apnea (adult) (pediatric) Lars Lindquist M.D. 01/07/2021 M19.90 Unspecified osteoarthritis, unsp ecified site Lars Lindquist M.D. 01/07/2021 R23.8 Other skin changes Lars gallegos M.D. 01/07/2021 H40.9 Unspecified glaucoma Lars jackson M.D. 01/07/2021 M54.5 Low back pain Lars Lindquist M.D. 01/04/2021 E11.65 Type 2 diabetes mellitus with hy perglycemia Lars Lindquist M.D. 01/04/2021 E11.65 Type 2 diabetes mellitus with hy perglycemia Lab Schedule 01/04/2021 Z79.4 jail (current) use of insul in Lars Lindquist M.D. 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 01/04/2021 I10 Essential (primary) hypertension Lab Schedule 01/04/2021 E78.00 Pure hypercholesterolemia, unspe cified Lars Lindquist M.D. 01/04/2021 E78.00 Pure hypercholesterolemia, unspe cified Lab Schedule 01/04/2021 E03.9 Hypothyroidism, unspecified Tata Lindquist M.D. 01/04/2021 E03.9 Hypothyroidism, unspecified Lab Schedule 01/04/2021 Z12.5 Encounter for screening for hetal gnant neoplasm of prostate Lars Lindquist M.D. 01/04/2021 Z12.5 Encounter for screening for hetal gnant neoplasm of prostate Lab Schedule 08/13/2020 E11.65 Type 2 diabetes mellitus with hy perglycemia Lars Lindquist M.D. 08/13/2020 Z79.4 jail (current) use of insul in Lars Lindquist M.D. 08/13/2020 E78.00 Pure hypercholesterolemia, unspe cified Lars Lindquist M.D. 08/13/2020 I10 Essential (primary) hypertension Lars Lindquist M.D. 08/13/2020 E03.9 Hypothyroidism, unspecified Tata Lindquist M.D. 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 08/13/2020 N40.0 Benign prostatic hyperplasia wit hout lower urinary tract sym Lars Lindquist M.D. 08/13/2020 J30.9 Allergic rhinitis, unspecified Bryan Lindquist M.D. 08/13/2020 H40.9 Unspecified glaucoma Lars jackson M.D. 08/13/2020 G47.33 Obstructive sleep apnea (adult) (pediatric) Lars Lindquist M.D. 08/13/2020 M19.90 Unspecified osteoarthritis, [facility] ecified site Lars Lindquist M.D. 08/10/2020 E11.9 Type 2 diabetes mellitus without complications Lars Lindquist M.D. 08/10/2020 E11.9 Type 2 diabetes mellitus without complications Lab Schedule 08/10/2020 I10 Essential (primary) hypertension Lars Lindquist M.D. 08/10/2020 I10 Essential (primary) hypertension Lab Schedule 08/10/2020 E78.00 Pure hypercholesterolemia, unspe cified Lars Lindquist M.D. 08/10/2020 E78.00 Pure hypercholesterolemia, unspe cified Lab Schedule 08/10/2020 E03.9 Hypothyroidism, unspecified Tata Lindquist M.D. 08/10/2020 E03.9 Hypothyroidism, unspecified Lab Schedule Plan of Treatment Future Appointment(s):* 09/06/2021 8:10 am - Lab Schedule at [facility] * 09/11/2021 9:30 am - Lars Lindquist M.D. at [facility] * 08/21/2021 9:00 am - ROSEMARY Mann at [facility] 01/07/2021 - Lars Lindquist M.D.* E78.00 Pure hypercholesterolemia, unspecified * I10 [...]
--- OUTSIDE RECORDS SUMMARY | 2021-02-18 09:51 | CCD | Continuity of Care Document ---
Author Author Kermit ABEL PA Organization Unknown Address [address] [place] [address] Phone [phone] Care Team Providers Care Dub Room Engineer Name Role Phone [facility]. [facility] [phone] Problems Active Problems Provider Date Obstructive sleep apnea syndrome DEREK Watson Onset: 12/16/2017 Social History Type Date Description Comments Sex Unknown Tobacco Use Reviewed: 12/10/18 Patient has never smoked Smoking Status Reviewed: 12/10/20 Patient has never smoked Allergies, Adverse Reactions, Alerts Description No Known Drug Allergies Medications Active Medications SIG Qnty Indications Ordering Provide r Date Aspirin Adult Low Dose 81mg Tablet s DR 1 tab by mouth every day Unknown 0 CPAP 11CM [facility] Unknown Finasteride 5mg Tablets 1 tab by mouth every day Unknown Gabapentin 300mg Capsules 1 cap by mouth every day Unknown Glimepiride 1mg Tablets 1 tab by mouth every day Unknown Indapamide 1.25mg Tablets 1 tab by mouth every day Unknown Lantus 100Unit/ML Solution 10 ml every morning as directed Unknown Lisinopril 20mg Tablets 1 tab by mouth every day Unknown Metformin HCL 1000mg Tablets 1 tab by mouth twice a day Unknown Nasonex 50mcg/Act Suspension 2 intranasal every day Unknown Simvastatin 20mg Tablets 1 tab by mouth every day Unknown Tamsulosin HCL 0.4mg Capsules 1 cap by mouth every day Unknown Zyrtec Allergy 10mg Tablets 1 tab by mouth every day Unknown Immunizations Description No Information Available Vital Signs Date Vital Result Comment 12/10/2020 8:00am BP Systolic 140 mmHg BP Diastolic 78 mmHg Heart Rate 79 /min O2 % BldC Oximetry 97 % Height 66 inches 5'6" Weight 225.00 lb BMI (Body Mass Index) 36.3 kg/m2 [place] Body Weight 142 lb Weight 102.060 kg BSA (Body Surface Area) 2.10 m2 12/12/2019 9:46am BP Systolic 132 mmHg BP Diastolic 78 mmHg Heart Rate 95 /min O2 % BldC Oximetry 97 % Body Temperature 97.1 F Height 66 inches 5'6" Weight 206.50 lb BMI (Body Mass Index) 33.3 kg/m2 [place]y Body Weight 142 lb Weight 93.668 kg BSA (Body Surface Area) 2.03 m2 Results Description No Information Available Procedures Description No Information Available Medical Devices Description No Information Available Encounters Description No Information Available Assessments Date Code Description Provider 12/10/2020 G47.33 Obstructive sleep apnea (adult) (pediatric) DEREK Watson Plan of Treatment Future Appointment(s):* 12/11/2021 8:00 am - DEREK Watson at [facility] Pulmonary/Thoracic 12/10/2020 - DEREK Watson* G47.33 Obstructive sleep apnea (adult) (pediatric) * * New Orders:* CPAP/BIPAP Supply, Ordered: 12/10/20 * Check Pap Machine, Ordered: 12/10/20 * Follow up:* 1. Bring in chip to [employer] care [employer] for Download compliance 2. Follow up in 1 year with additional download Functional Status Description No Information Available Mental Status Description No Information Available Referrals Description No Information Available
--- OUTSIDE RECORDS SUMMARY | 2021-02-18 09:51 | CCD | Continuity of Care Document ---
Author Author Kermit RIVERA M.D. Organization Unknown Address [address] [address] Phone [phone] Care Team Providers Care Carpenter Foreman Name Role Phone Lars Rivera MD AUTM [phone] Arash Bond MD AUTM [phone] Gerson Carter MD AUTM [phone] Leana Isabel OD AUTM Unavailable Problems Active [...] Use Start: Unknown Patient has never smoked Allergies, Adverse Reactions, Alerts Description No Known Drug Allergies Medications Active Medications SIG Qnty Indications Ordering Provide r Date Onetouch Club Lancets Fine Point Misc test blood sugar twice a day dx E11.9 200units Lars monzon M.D. 01/07/2021 Keflex 500mg Capsules by mouth three times a day x 7 days 21ingrids Lars Rivera M.D. 03/09/2020 Synthroid 75mcg Tablets po [place] 90tabs Lars Rivera M.D. 12/17/2018 Onetouch Ultra 2 w/Device Kit test twice a day and as directed e11.9 1units E78.00 Lars Rivera M.D. 0 12/17/2018 BD Autoshield Duo 30G X 5 mm Misc use twice a day E11.9 180units E11.9 Lars Rivera M.D. 018 Zyrtec Allergy 10mg Capsules 1 by mouth every day 30ingrids Lars Rivera M.D. 04/07/2017 Lantus Solostar 100U nit/ML Solution Pen-Inject 14 units in the in the morning and 12 units at night daily 45ml Lars Rivera M.D. 06/19/2015 Lisinopril 20mg Tablets 1 by mouth every at night 90tabs Lars Rivera M.D. 09/12/2014 Metformin HCL 1000mg Tablets take one tablet by mouth twice a day 180tabs Lars Rivera M.D. 09/12/2014 Indapamide 1.25mg Tablets 1 by mouth every night 90tabs Lars Rivera M.D. 09/12/2014 Ibuprofen 800mg Tablets as needed 90tabs Lars Rivera M.D. 09/12/2014 Aspir-[address] 1 by mouth every day 90taamandeep Rivera M.D. 09/12/2014 Gabapentin 300mg Capsules 1 by mouth every morning 90eliana Rivera M.D. 09/12/2014 Finasteride 5mg Tablets 1 by mouth every day 90micheal Rivera M.D. 09/12/2014 Tamsulosin HCL 0.4mg Capsules 2 daily 1/2 hour after same meal in the at night 180eliana jackson M.D. 09/12/2014 Glimepiride 1mg Tablets 1 in in the morning and 1 with dinner 180micheal Rivera M.D. 0 09/12/2014 Fluticasone Propionate 50mcg/Act Suspension 2 sprays each nostril daily Unknown Medications Administered in Office Medication SIG Qnty Indications Ordering Provider Date Administration Of Flu Vaccine Inj ection Lars Rivera M.D. 03/19/2016 Administration Of Flu Vaccine Inj ection Lars Rivera M.D. 03/19/2015 Immunizations CPT Code Status Date Vaccine Lot # [id number] Given 01/31/2020 Shingrix Zoster Vaccine (HZV), Recombinant, Subunit, Adjuvanted U-Flu Given 01/18/2020 Influenza,Unspecified U-Flu Given 02/07/2018 Influenza,Unspecified U-Flu Given 02/28/2017 Influenza,Unspecified [id number] Given 03/19/2016 Fluvirin Virus Vaccine [id number] 01 Q2037 Given 03/19/2015 Fluvirin Virus Vaccine 98597 01 56741 Given 01/18/2014 Influenza Virus Vaccine 43188 Given 05/27/2013 Pneumovax 23 91991 Given 05/27/2012 Adacel- Tetanus Diphtheria P ertussis 95947 Refused 01/18/2014 Zoster Vaccine 46792 Refused 05/27/2013 Influenza Virus Vaccine Vital Signs [...] Date Facility Test Result H/L Range Note Complete Blood Count 01/04/2021 [facility] Patient Registration Supervisor: [place] [address] [phone] WBC 4.6 x10*3/UL 4.1 - 10.9 RBC [...] 2.7 x10*3/UL 2.0 - 7.8 A1c 01/04/2021 [facility] Patient Registration Supervisor: [place] [address] [phone] Hba1c 6.7 % High <5.7 1 Est Avg Glucose 146 mg/dL High 60 - 110 Comprehensive Chem Profile 01/04/2021 [facility] Patient Registration Supervisor: [place] [address] [phone] Glucose 122 mg/dL High 74 - 99 [...] 60 mL/min >60 3 Lipid Profile 01/04/2021 [facility] Patient Registration Supervisor: [place] [address] [phone] Cholesterol 188 mg/dL 131 - 200 Triglycerides 261 mg/dL High 30 - 150 HDL Cholesterol 37 mg/dL 35 - 60 LDL (Calculated) 99 CALC 50 - 159 Laboratory test finding 01/04/2021 [facility] Patient Registration Supervisor: [place] [address] [phone] Thyroid Stimulating Hormone 3.75 uIU/mL High 0.3 6 - 3.74 Complete Blood Count 08/10/2020 [facility] Patient Registration Supervisor: [place] [address] [phone] WBC 5.2 x10*3/UL 4.1 - 10.9 RBC [...] 3.4 x10*3/UL 2.0 - 7.8 A1c 08/10/2020 [facility] Patient Registration Supervisor: [place] [address] [phone] Hba1c 7.0 % High <5.7 4 Est Avg Glucose 154 mg/dL High 60 - 110 Comprehensive Chem Profile 08/10/2020 [facility] Patient Registration Supervisor: [place] [address] [phone] Glucose 168 mg/dL High 74 - 99 5 BUN 25 mg/dL High 7 - 18 [...] Low >60 GFR >= 60 mL/min >60 6 Lipid Profile 08/10/2020 [facility] Patient Registration Supervisor: [place] [address] [phone] Cholesterol 209 mg/dL High 131 - 200 Triglycerides 338 mg/dL High 30 - 150 HDL Cholesterol 37 mg/dL 35 - 60 LDL (Calculated) 104 CALC 50 - 159 Laboratory test finding 08/10/2020 [facility] Patient Registration Supervisor: [place] [address] [phone] Thyroid Stimulating Hormone 3.73 uIU/mL 0.3 6 [...] LITTLE GFR LEFT ESRD GFR <15 ON APPLICATION ANALYST 4 Lab Result Notes: Pre-Diabetes 5.7 - 6.4 % Diabetes = or > 6.5% 5 100-125 mg/dL PRE-DIABET ES/FASTING >126 mg/dL DIABETES/FASTING 6 CHRONIC KIDNEY DISEASE STAGI NG PER NKF STAGE I & II GFR >= 60 NORMAL TO MILDLY DECREASED STAGE III GFR 30-59 MODERATELY DECREASED STAGE IV GFR 15-29 SEVERELY DECREASED STAGE V GFR <15 VERY LITTLE GFR LEFT ESRD GFR <15 ON APPLICATION ANALYST Procedures Date Code Description Status 08/13/2020 56126 Office/Outpatient Established Mo d MDM 30-39 Min Completed 05/28/2018 [id number] Diabetic Retinal Eye Exam [facility] 05/29/2017 [id number] Diabetic Retinal Eye Exam [facility] 09/05/2014 [id number] Colonoscopy Completed Medical Devices Description No Information Available Encounters Type Date Location Provider Dx Diagnosis Office Visit 08/13/2020 10:30a [facility] Lars Rivera M.D. 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 08/13/2020 Z79.4 assisted (current) use of insul in Lars Rivera M.D. 08/13/2020 E78.00 Pure hypercholesterolemia, unspe cified Lars Rivera M.D. 08/13/2020 I10 Essential (primary) hypertension Lars Rivera M.D. 08/13/2020 E03.9 Hypothyroidism, unspecified Tata Rivera M.D. 08/13/2020 C83.00 Small cell B-cell lymphoma, uns ecified site Lars Rivera M.D. 08/13/2020 N40.0 Benign prostatic hyperplasia wit hout lower urinary tract sym Lars Rivera M.D. 08/13/2020 J30.9 Allergic rhinitis, unspecified J bessie Rivera M.D. 08/13/2020 H40.9 Unspecified glaucoma Lars jackson M.D. 08/13/2020 G47.33 Obstructive sleep apnea (adult) (pediatric) Lars Rivera M.D. 08/13/2020 M19.90 Unspecified osteoarthritis, [facility] ecified site Lars Rivera M.D. 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 Type 2 diabetes mellitus with hyperglycemia: Uncontrolled with HgbA1c of 7.0, which is a significant increase from last check at 6.0. Patient is aware of this and will work on his diet very carefully. We discussed end organ damage. We will monitor.2. Hypercholesterolemia: Mild elevation in cholesterol and LDL, although increased TGs. This is likely to due to his choice of food in the [place]. We discussed importance of controlling his lipids and he has promised to work up on his diet during the summer. We will monitor.,3. Hypertension: Stable on present regimen, will continue and monitor.4. Hypothyroidism: Borderline high TSH. We will continue to monitor him on present replacement dose.5. Small cell B-cell lymphoma: Stable. We discussed importance of following up with Hem-Onc. He understands this and we will monitor.6. Benign prostatic hyperplasia without lower urinry tract symp: Generally stable on Tamsulosin and Finasteride. We discussed possible referral to Urology if his urgency worsens.7. Allergic rhinitis: No recent issues. This is mostly during winter. We will continue to monitor.8. Glaucoma: Stable. Follows with Dr. West and will continue a ppropriate follow up.9. Obstructive sleep apnea: Good results with the use of CPAP daily at night. He will continue to follow up with Pulmonary appropriately.10. Osteoarthritis: Stable. He will follow up with orthopedics at [facility] appropriately.11. ad terminal makeup operator (current) use of insulin: Overall doing well on this, will continue.12. Dizziness: Possible etiology discussed. He will let us know if his symptoms worsen.13. Edema: Education was done. He will avoid salty food. We discussed elevation of the feet and use of compression stockings.Ongoing cares: I am going to see him again in 4- 5 months with CMP, lipids, TSH, HgbA1c and CBC. If he has new problems or issues sooner he will let us know. Functional Status Description No Information Available Mental Status Description No Information Available Referrals Description No Information Available
--- OUTSIDE RECORDS SUMMARY | 2021-02-18 09:51 | CCD | Continuity of Care Document ---
Author Author Lab Schedule, Kermit French Organization Unknown Address [address] [address] Phone Unavailable Care Team Providers Care Adhesive Bonding Machine Operator Name Role Phone Lars Lindquist MD AUTM [phone] Arash Bond MD AUTM [phone] Gerson Carter MD AUTM [phone] Leana Isabel OD AUTM Unavailable Problems Active [...] adenomatous polyps on colono scopy 08/2014 Dr Wlison - noted by him repeat 3 yrs [...] CPT Code Status Date Vaccine Lot # [id number] Given 01/31/2020 Shingrix Zoster Vaccine (HZV), Recombinant, Subunit, Adjuvanted U-Flu Given 01/18/2020 Influenza,Unspecified U-Flu Given 02/07/2018 Influenza,Unspecified U-Flu Given 02/28/2017 Influenza,Unspecified Q2037 Given 03/19/2016 Fluvirin Virus Vaccine 04033 01 Q2037 Given 03/19/2015 Fluvirin Virus Vaccine 61945 01 01443 Given 01/18/2014 Influenza Virus Vaccine 55054 Given 05/27/2013 Pneumovax 23 75405 Given 05/27/2012 Adacel- Tetanus Diphtheria P ertussis 74183 Refused 01/18/2014 Zoster Vaccine 28381 Refused 05/27/2013 Influenza Virus Vaccine Vital Signs [...] Note Microalbumin/Creatinine Urine 01/07/2021 [facility] Visual Training Aide: [place] [address] [phone] Microalbumin Urine 8.1 mg/L 1.3 - 20.0 Urine Creatinine 69.8 mg/dL 30.0 - 125.0 Microalb/Creat Ratio 11.6 ug/mg 0.0 - 30.0 Complete Blood Count 01/04/2021 [facility] Visual Training Aide: [place] [address] [phone] WBC 4.6 x10*3/UL 4.1 - 10.9 RBC [...] 2.7 x10*3/UL 2.0 - 7.8 A1c 01/04/2021 [facility] Visual Training Aide: [place] [address] [phone] Hba1c 6.7 % High <5.7 1 Est Avg Glucose 146 mg/dL High 60 - 110 Comprehensive Chem Profile 01/04/2021 [facility] Visual Training Aide: [place] [address] [phone] Glucose 122 mg/dL High 74 - 99 [...] 60 mL/min >60 3 Lipid Profile 01/04/2021 [facility] Visual Training Aide: Dr Eliseo [place] [id number] [phone] Cholesterol 188 mg/dL 131 - 200 Triglycerides 261 mg/dL High 30 - 150 HDL Cholesterol 37 mg/dL 35 - 60 LDL (Calculated) 99 CALC 50 - 159 Laboratory test finding 01/04/2021 [facility] Visual Training Aide: [place] [address] [phone] Thyroid Stimulating Hormone 3.75 uIU/mL High 0.3 6 - 3.74 Laboratory test finding 01/04/2021 [facility] Visual Training Aide: Dr Eliseo [place] [id number] [phone] PSA <pending> Complete Blood Count 08/10/2020 [facility] Visual Training Aide: Dr [place]iseo [place], [place] [address] [phone] WBC 5.2 x10*3/UL 4.1 - 10.9 RBC [...] 3.4 x10*3/UL 2.0 - 7.8 A1c 08/10/2020 [facility] Visual Training Aide: [place] [address] [phone] Hba1c 7.0 % High <5.7 4 Est Avg Glucose 154 mg/dL High 60 - 110 Comprehensive Chem Profile 08/10/2020 [facility] Visual Training Aide: [place] [address] [phone] Glucose 168 mg/dL High 74 - 99 [...] 60 mL/min >60 6 Lipid Profile 08/10/2020 [facility] Visual Training Aide: [place] [address] [phone] Cholesterol 209 mg/dL High 131 - 200 Triglycerides 338 mg/dL High 30 - 150 HDL Cholesterol 37 mg/dL 35 - 60 LDL (Calculated) 104 CALC 50 - 159 Laboratory test finding 08/10/2020 [facility] Visual Training Aide: [place] [address] [phone] Thyroid Stimulating Hormone 3.73 uIU/mL 0.3 6 [...] LITTLE GFR LEFT ESRD GFR <15 ON COMBATANT SWIMMER 4 Lab Result Notes: Pre-Diabetes 5.7 - [...] LITTLE GFR LEFT ESRD GFR <15 ON COMBATANT SWIMMER Procedures Date Code Description Status 08/13/2020 12801 Office/Outpatient Established Mo d MDM 30-39 Min Completed 05/28/2018 [id number] Diabetic Retinal Eye Exam [facility] 05/29/2017 [id number] Diabetic Retinal Eye Exam [facility] 09/05/2014 [id number] Colonoscopy Completed Medical Devices Description No Information Available Encounters Type Date Location Provider Dx Diagnosis Office Visit 08/13/2020 10:30a [facility] Lars Lindquist M.D. E11.65 Type 2 diabetes mellitus with hyperglyce guillermo Z79.4 [facility] (current) use of i nsulin E78.00 Pure [...] M.D. 01/07/2021 C83.00 Small cell B-cell lymphoma, [facility] ecified site Lars Lindquist M.D. 01/07/2021 N40.0 Benign prostatic hyperplasia wit hout lower urinary tract sym Lars Lindquist M.D. 01/07/2021 J30.9 Allergic rhinitis, unspecified Bryan Lindquist M.D. 01/07/2021 E11.9 Type 2 diabetes mellitus without complications Lars Lindquist M.D. 01/07/2021 G47.33 Obstructive sleep apnea (adult) (pediatric) Lars Lindquist M.D. 01/07/2021 M19.90 Unspecified osteoarthritis, [facility] ecified site Lars Lindquist M.D. 01/07/2021 R23.8 Other skin changes Lars gallegos M.D. 01/07/2021 H40.9 Unspecified glaucoma Lars jackson M.D. 01/07/2021 M54.5 Low back pain Lars Lindquist M.D. 01/04/2021 E11.65 Type 2 diabetes mellitus with hy perglycemia Lars Lindquist M.D. 01/04/2021 E11.65 Type 2 diabetes mellitus with hy perglycemia Lab Schedule 01/04/2021 Z79.4 [facility] (current) use of insul in Lars Lindquist M.D. 01/04/2021 Z79.4 terminal gauger supervisor (current) use of insul in Lab Schedule [...] hy perglycemia Lars Lindquist M.D. 08/13/2020 Z79.4 terminal gauger supervisor (current) use of insul in Lars Lindquist M.D. 08/13/2020 E78.00 Pure hypercholesterolemia, unspe cified Lars Lindquist M.D. 08/13/2020 I10 Essential (primary) hypertension Lars Lindquist M.D. 08/13/2020 E03.9 Hypothyroidism, unspecified Tata Lindquist M.D. 08/13/2020 C83.00 Small cell B-cell lymphoma, [facility] ecified site Lars Lindquist M.D. 08/13/2020 N40.0 Benign prostatic hyperplasia wit hout lower urinary tract sym Lars Lindquist M.D. 08/13/2020 J30.9 Allergic rhinitis, unspecified Bryan Lindquist M.D. 08/13/2020 H40.9 Unspecified glaucoma Lars jackson M.D. 08/13/2020 G47.33 Obstructive sleep apnea (adult) (pediatric) Lars Lindquist M.D. 08/13/2020 M19.90 Unspecified osteoarthritis, [facility] ecified site Lars Lindquist M.D. 08/10/2020 E11.9 [...] 09/06/2021 8:10 am - Lab Schedule at [facility] * 09/11/2021 9:30 am - Lars Lindquist M.D. at [facility] * 08/21/2021 9:00 am - ROSEMARY Mann at [facility] 01/07/2021 - Lars Lindquist M.D.* [...]
--- OUTSIDE RECORDS SUMMARY | 2021-02-18 09:51 | CCD | Continuity of Care Document ---
Author Author Kermit NEAL Organization Unknown Address [address] [place] [address] [place] [address] Phone [phone] Care Team Providers Care Tracer Bullet Charging Machine Operator Name Role Phone [facility] AUTM [phone] Problems Active Problems Provider Date Acute sinusitis Aleida Ulrich Onset: 1 Essential hypertension Aleida Ulrich Onset: 2010 Acute bronchitis Aleida Melo Onset: 05/05/2010 Type 2 diabetes mellitus Onset: 00 Hyperlipidemia Onset: Acute upper respiratory infection Aleida Gordon Onset: 10/02/2010 Social History Type Date Description Comments Sex Unknown ETOH Use Occasionally consumes alcohol Tobacco Use Start: Unknown No Tobacco Use Start: Unknown Patient has never smoked Smoking Status Reviewed: 12/11/19 Patient has never smoked Allergies, Adverse Reactions, Alerts Description No Known Drug Allergies Medications Active Medications SIG Qnty Indications Ordering Provide r Date Mucinex DM 30-600mg Tablets ER 12H R take one in the morning and one at night for cough 14tabs J20.9 Eliseo Mac JR., M.D. 11/03/2018 Fosinopril Sodium Unknown 000 Simvastatin Unknown Metformin HCL 1000mg Tablets 1 po bid Unknown Aspirin Adult Low Strength 81mg Ch ewtabs qd Unknown Indapamide 1.25mg Tablets po qd Unknown Tamsulosin HCL 0.4mg Capsules po qd Unknown Gabapentin 300mg Capsules po tid 40caps Unknown Finasteride 5mg Tablets po qd Unknown Lantus 100Unit/ML Solution 30 units every in the morning Unknown Immunizations CPT Code Status Date Vaccine Lot # [id number] Given 02/02/2009 Influenza Virus Split 3 Yrs And Above For Intramuscular Use Vital Signs Date Vital Result Comment 12/11/2019 9:34am BP Systolic 119 mmHg BP Diastolic 73 mmHg Heart Rate 79 /min O2 % BldC Oximetry 99 % Body Temperature 98.1 F Weight 198.00 lb Height 66 inches 5'6" BMI (Body Mass Index) 32.0 kg/m2 Pain Level 5 06/21/2019 1:02pm BP Systolic 119 mmHg BP Diastolic 73 mmHg Heart Rate 96 /min Respiratory Rate 16 /min O2 % BldC Oximetry 97 % Body Temperature 98.3 F Weight 206.00 lb Height 66 inches 5'6" BMI (Body Mass Index) 33.2 kg/m2 Pain Level 6 Results Description No Information Available Procedures Description No Information Available Medical Devices Description No Information Available Encounters Description No Information Available Assessments Date Code Description Provider 01/10/2021 U07.1 Covid-19 Yony gallegos, P.ACezar Plan of Treatment No Information Available Functional Status Description No Information Available Mental Status Description No Information Available Referrals Description No Information Available
--- OUTSIDE RECORDS SUMMARY | 2021-02-18 09:51 | CCD | Continuity of Care Document ---
Author Author Lab Schedule, Kermit French Organization Unknown Address [address] [address] Phone Unavailable Care Team Providers Care Landscaping Manager Name Role Phone Lars Lindquist MD AUTM [phone] Arash Bond MD AUTM [phone] Gerson Carter MD AUTM [phone] Leana Isabel OD AUTM Unavailable Problems Active [...] SIG Qnty Indications Ordering Provide r Date Keflex 500mg Capsules by mouth three times a day x 7 days 21eliana Lindquist M.D. 03/09/2020 Synthroid 75mcg Tablets [place] 90tabs Lars Lindquist M.D. 12/17/2018 [employer] 2 w/Device Kit test twice a day and as directed e11.9 1units E78.00 Lars Lindquist M.D. 0 12/17/2018 BD Autoshield Duo 30G X 5 mm Misc use twice a day E11.9 180units E11.9 Lars Lindquist M.D. 018 Zyrtec Allergy 10mg Capsules 1 by mouth every day 30ingrids Lars Lindquist M.D. 04/07/2017 Lantus Solostar 100U nit/ML Solution Pen-Inject 14 units in the in the morning and 12 units at night daily 45ml Lars Lindquist M.D. 06/19/2015 [employer] Ultra Blue Strips test blood sugar twice a day dx E11.9 200units Lars Lindquist M.D. 01/03/2015 Lisinopril 20mg Tablets 1 by mouth every at night 90taamandeep Lindquist M.D. 09/12/2014 Metformin HCL 1000mg Tablets take one tablet by mouth twice a day 180tabs Lars Lindquist M.D. 09/12/2014 Indapamide 1.25mg Tablets 1 by mouth every night 90taamandeep Lindquist M.D. 09/12/2014 Ibuprofen 800mg Tablets as needed 90tabs Lars Lindquist M.D. 09/12/2014 Aspir-[address] 1 by mouth every day 90taamandeep Lindquist M.D. 09/12/2014 Gabapentin 300mg Capsules 1 by mouth every morning 90caps Lars Lindquist M.D. 09/12/2014 Finasteride 5mg Tablets 1 by mouth every day 90taamandeep Lindquist M.D. 09/12/2014 Tamsulosin HCL 0.4mg Capsules 2 daily 1/2 hour after same meal in the at night 180capeliza jackson M.D. 09/12/2014 Glimepiride 1mg Tablets 1 in in the morning and 1 with dinner 180taamandeep Lindquist M.D. 0 09/12/2014 Fluticasone Propionate 50mcg/Act Suspension 2 sprays each nostril daily Unknown Medications Administered in Office Medication SIG Qnty Indications Ordering Provider Date Administration Of Flu Vaccine Inj mignonion Lars Lindquist M.D. 03/19/2016 Administration Of Flu Vaccine Inj mignonion Lars Lindquist M.D. 03/19/2015 Immunizations CPT Code Status Date Vaccine Lot # [id number] Given 01/31/2020 Shingrix Zoster Vaccine (HZV), Recombinant, Subunit, Adjuvanted U-Flu Given 01/18/2020 Influenza,Unspecified U-Flu Given 02/07/2018 Influenza,Unspecified U-Flu Given 02/28/2017 Influenza,Unspecified Q2037 Given 03/19/2016 Fluvirin Virus Vaccine [id number] 01 Q2037 Given 03/19/2015 Fluvirin Virus Vaccine 07818 01 22395 Given 01/18/2014 Influenza Virus Vaccine 10670 Given 05/27/2013 Pneumovax 23 48474 Given 05/27/2012 Adacel- Tetanus Diphtheria P ertussis 70124 Refused 01/18/2014 Zoster Vaccine 96118 Refused 05/27/2013 Influenza Virus Vaccine Vital Signs Date Vital Result Comment 08/13/2020 10:29am BP Systolic 122 mmHg BP Diastolic 68 mmHg Heart Rate 72 /min Height 65.5 inches 5'5.50" Weight 230.00 lb BMI (Body Mass Index) 37.7 kg/m2 03/09/2020 1:56pm BP Systolic 130 mmHg BP Diastolic 72 mmHg Heart Rate 68 /min Height 65.5 inches 5'5.50" Weight 216.00 lb BMI (Body Mass Index) 35.4 kg/m2 Results Test Acquired Date Facility Test Result H/L Range Note Complete Blood Count 01/04/2021 [facility] Metal Coater: [place] [address] [phone] WBC 4.6 x10*3/UL 4.1 - 10.9 RBC [...] 2.7 x10*3/UL 2.0 - 7.8 A1c 01/04/2021 [facility] Co[employer]: [place] [address] [phone] Hba1c 6.7 % High <5.7 1 Est Avg Glucose 146 mg/dL High 60 - 110 Comprehensive Chem Profile 01/04/2021 [facility] [employer] Co[employer]: [place] [address] [phone] Glucose 122 mg/dL High 74 - 99 [...] 60 mL/min >60 3 Lipid Profile 01/04/2021 [facility] Metal Coater: [place] [address] [phone] Cholesterol 188 mg/dL 131 - 200 Triglycerides 261 mg/dL High 30 - 150 HDL Cholesterol 37 mg/dL 35 - 60 LDL (Calculated) 99 CALC 50 - 159 Laboratory test finding 01/04/2021 [facility] Metal Coater: [place] [address] [phone] Thyroid Stimulating Hormone 3.75 uIU/mL High 0.3 6 - 3.74 Complete Blood Count 08/10/2020 [facility] Metal Coater: [place] [address] [phone] WBC 5.2 x10*3/UL 4.1 - 10.9 RBC [...] 3.4 x10*3/UL 2.0 - 7.8 A1c 08/10/2020 [facility] Metal Coater: [place] [address] [phone] Hba1c 7.0 % High <5.7 4 Est Avg Glucose 154 mg/dL High 60 - 110 Comprehensive Chem Profile 08/10/2020 [facility] Co[employer]: [place] [address] [phone] Glucose 168 mg/dL High 74 - 99 [...] 60 mL/min >60 6 Lipid Profile 08/10/2020 [facility] Co[facility]: [place] [address] [phone] Cholesterol 209 mg/dL High 131 - 200 Triglycerides 338 mg/dL High 30 - 150 HDL Cholesterol 37 mg/dL 35 - 60 LDL (Calculated) 104 CALC 50 - 159 Laboratory test finding 08/10/2020 [facility] [employer] Co[employer]: [place] [address] [phone] Thyroid Stimulating Hormone 3.73 uIU/mL 0.3 6 [...] LITTLE GFR LEFT ESRD GFR <15 ON LEATHER PRODUCTION ARTISAN 4 Lab Result Notes: Pre-Diabetes 5.7 - [...] LITTLE GFR LEFT ESRD GFR <15 ON LEATHER [employer]ODUCTION ARTISAN Procedures Date Code Description Status 08/13/2020 82539 Office/Outpatient Established Mo d MDM 30-39 Min Completed 05/28/2018 [id number] Diabetic Retinal Eye Exam [facility]ple [facility] 05/29/2017 [id number] Diabetic Retinal Eye Exam Comple [facility] 09/05/2014 [id number] Colonoscopy Completed Medical Devices Description No Information Available Encounters Type Date Location Provider Dx Diagnosis Office Visit 08/13/2020 10:30a [facility] Lars Lindquist M.D. E11.65 Type 2 diabetes mellitus with hyperglyce guillermo Z79.4 [facility] (current) use of i nsulin E78.00 Pure [...] hy perglycemia Lars Lindquist M.D. 08/13/2020 Z79.4 [facility] (current) use of insul in Lars Lindquist M.D. 08/13/2020 E78.00 Pure hypercholesterolemia, unspe cified Lars Lindquist M.D. 08/13/2020 I10 Essential (primary) hypertension Lars Lindquist M.D. 08/13/2020 E03.9 Hypothyroidism, unspecified Tata Lindquist M.D. 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 08/13/2020 N40.0 Benign prostatic hyperplasia wit hout lower urinary tract sym Lars Lindquist M.D. 08/13/2020 J30.9 Allergic rhinitis, unspecified J bessie Lindquist M.D. 08/13/2020 H40.9 Unspecified glaucoma Lars jackson M.D. 08/13/2020 G47.33 Obstructive sleep apnea (adult) (pediatric) Lars Lindquist M.D. 08/13/2020 M19.90 Unspecified osteoarthritis, [facility] ecified site Lars Lindquist M.D. 08/10/2020 [...] Lab Schedule Plan of Treatment Future Appointment(s):* 01/07/2021 11:00 am - Lars Lindquist M.D. at [facility] 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 We discussed importance of controlling his lipids [...] follow up with orthopedics at [facility] appropriately.[facility]. [facility] (current) use of insulin: Overall doing well [...]
--- OUTSIDE RECORDS SUMMARY | 2021-02-18 09:51 | CCD | Continuity of Care Document ---
Author Author Kermit NEAL Organization Unknown Address [address] [place] [address] [place] [address] Phone [phone] Care Team Providers Care Equipment Records Supervisor Name Role Phone [facility] AUTM [phone] Problems Active Problems Provider Date Acute sinusitis [...] Available Encounters Description No Information Available Assessments Description No Information Available Plan of Treatment No Information Available Functional Status Description No Information Available Mental Status Description No Information Available Referrals Description No Information Available
--- OUTSIDE RECORDS SUMMARY | 2021-02-18 09:51 | CCD | Continuity of Care Document ---
Author Author Kermit ABEL PA Organization Unknown Address [address] [place] [address] Phone [phone] Care Team Providers Care Sr Risk Management Consultant Name Role Phone [facility]. [facility] [phone] Problems Active Problems Provider Date Obstructive sleep [...] lb BMI (Body Mass Index) 36.3 kg/m2 [place] Body Weight 142 lb Weight 102.060 kg BSA (Body Surface Area) 2.10 m2 12/12/2019 9:46am BP Systolic 132 mmHg BP Diastolic 78 mmHg Heart Rate 95 /min O2 % BldC Oximetry 97 % Body Temperature 97.1 F Height 66 inches 5'6" Weight 206.50 lb BMI (Body Mass Index) 33.3 kg/m2 [place] Body Weight 142 lb Weight 93.668 kg BSA (Body Surface Area) 2.03 m2 Results Description No Information Available Procedures Date Code Description Status 12/10/2020 72905 Office/Outpatient Established Lo w MDM 20-29 Min Completed Medical Devices Description No Information Available Encounters Type Date Location Provider Dx Diagnosis Office Visit 12/10/2020 8:00a [facility] Pulmonary/Thoracic DEREK Watson G47.33 Obstructive sleep apnea (adult) (pediatr ic) Assessments Date Code Description Provider 12/10/2020 G47.33 Obstructive sleep apnea (adult) (pediatric) DEREK Watson Plan of Treatment Future Appointment(s):* 12/11/2021 8:00 am - DEREK Watson at [facility] Pulmonary/Thoracic 12/10/2020 - DEREK Watson* G47.33 Obstructive sleep apnea (adult) (pediatric) * * New Orders:* CPAP/BIPAP Supply, Ordered: 12/10/20 * Check Pap Machine, Ordered: 12/10/20 * Follow up:* 1. Bring in chip to [employer] for Download compliance 2. Follow up in 1 year with additional download Functional Status Description No Information Available Mental Status Description No Information Available Referrals Description No Information Available
--- OUTSIDE RECORDS SUMMARY | 2021-02-18 09:51 | CCD | Continuity of Care Document ---
Author Author Lab Schedule, Kermit French Organization Unknown Address [address] [address] Phone Unavailable Care Team Providers Care Barnworker Groom Name Role Phone Lars Lindquist MD AUTM [phone] Arash Bond MD AUTM [phone] Gerson Carter MD AUTM [phone] Leana Isabel OD AUTM Unavailable Problems Active [...] da gerson 90tabs Lars Lindquist M.D. 12/17/2018 [employer] 2 w/Device Kit test twice a day [...] night daily 45ml Lars Lindquist M.D. 06/19/2015 [employer] Ultra Blue Strips test blood sugar twice [...] CPT Code Status Date Vaccine Lot # [id number] Given 01/31/2020 Shingrix Zoster Vaccine (HZV), Recombinant, Subunit, Adjuvanted U-Flu Given 01/18/2020 Influenza,Unspecified U-Flu Given 02/07/2018 Influenza,Unspecified U-Flu Given 02/28/2017 Influenza,Unspecified Q2037 Given 03/19/2016 Fluvirin Virus Vaccine 52268 01 Q2037 Given 03/19/2015 Fluvirin Virus Vaccine 81871 01 57146 Given 01/18/2014 Influenza Virus Vaccine 54193 Given 05/27/2013 Pneumovax 23 03724 Given 05/27/2012 Adacel- Tetanus Diphtheria P ertussis 14184 Refused 01/18/2014 Zoster Vaccine 22636 Refused 05/27/2013 Influenza Virus Vaccine Vital Signs [...] Date Facility Test Result H/L Range Note Laboratory test finding 01/04/2021 [place] [facility] [employer] [facility] Digital Account Supervisor: [place] [address] [phone] A1c <pending> Laboratory test finding 01/04/2021 [place] [employer] judson valdovinos Digital Account Supervisor: [place] [address] [phone] TSH <pending> Complete Blood Count 08/10/2020 [facility] [facility] Digital Account Supervisor: [place] [address] [phone] WBC 5.2 x10*3/UL 4.1 - 10.9 RBC [...] 3.4 x10*3/UL 2.0 - 7.8 A1c 08/10/2020 [place] [facility] , Digital Account Supervisor: [place] [address] [phone] Hba1c 7.0 % High <5.7 1 Est Avg Glucose 154 mg/dL High 60 - 110 Comprehensive Chem Profile 08/10/2020 [place] Rolando neal [employer] Account Supervisor: [place] [address] [phone] Glucose 168 mg/dL High 74 - 99 2 BUN 25 mg/dL High 7 - 18 [...] Low >60 GFR >= 60 mL/min >60 3 Lipid Profile 08/10/2020 [facility] [employer] Account Supervisor: [place] [address] [phone] Cholesterol 209 mg/dL High 131 - 200 Triglycerides 338 mg/dL High 30 - 150 HDL Cholesterol 37 mg/dL 35 - 60 LDL (Calculated) 104 CALC 50 - 159 Laboratory test finding 08/10/2020 [place] [employer] judson [facility]dovinos Digital Account Supervisor: [place] [address] [phone] Thyroid Stimulating Hormone 3.73 uIU/mL 0.3 6 [...] LITTLE GFR LEFT ESRD 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 Lars Lindquist M.D. E11.65 Type 2 diabetes mellitus with hyperglyce guillermo Z79.4 detention (current) use of i nsulin E78.00 Pure [...] perglycemia Lars Lindquist M.D. 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 08/13/2020 E78.00 Pure hypercholesterolemia, unspe cified Lars Lindquist M.D. 08/13/2020 I10 Essential (primary) hypertension Lars Lindquist M.D. 08/13/2020 E03.9 Hypothyroidism, unspecified Tata Lindquist M.D. 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 08/13/2020 N40.0 Benign prostatic hyperplasia wit hout lower urinary tract sym Lars Lindquist M.D. 08/13/2020 J30.9 Allergic rhinitis, unspecified Bryan Lindquist M.D. 08/13/2020 H40.9 Unspecified glaucoma Lars jackson M.D. 08/13/2020 G47.33 Obstructive sleep apnea (adult) (pediatric) Lars Lindquist M.D. 08/13/2020 M19.90 Unspecified osteoarthritis, unsp ecified site Lars Lindquist M.D. 08/10/2020 E11.9 [...] 11:00 am - 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 We discussed importance of controlling his lipids [...] follow up with orthopedics at [facility] appropriately.11. detention (current) use of insulin: Overall doing well [...]
--- OUTSIDE RECORDS SUMMARY | 2021-02-18 09:52 | CCD ---
Author Author [facility] Organization [facility] Address Unknown Phone Unavailable Care Team Providers Care Chief Innovation Officer Name Role Phone Ada Lindquist MD Unavailable Unavailable Ada Lindquist MD Unavailable Unavailable Ada Lindquist MD Unavailable Unavailable Ada Lindquist MD Unavailable Unavailable Ada Lindquist MD Unavailable Unavailable Ada Lindquist MD Unavailable Unavailable Ada Lindquist MD Unavailable Unavailable Ada Lindquist MD Unavailable Unavailable Ada Lindquist MD Unavailable Unavailable Ada Lindquist MD Unavailable Unavailable Ada Lindquist MD Unavailable Unavailable Ada Lindquist MD Unavailable Unavailable Ada Lindquist MD Unavailable Unavailable Ada Lindquist MD Unavailable Unavailable Ada Lindquist MD Unavailable Unavailable Ada Lindquist MD Unavailable Unavailable Ada Lindquist MD Unavailable Unavailable Ada Lindqiust MD Unavailable Unavailable Ada Lindquist MD Unavailable Unavailable Ada Lindquist MD Unavailable Unavailable Ada Lindquist MD Unavailable Unavailable Ada Lindquist MD Unavailable Unavailable Ada Lindquist MD Unavailable Unavailable Ada Lindquist MD Unavailable Unavailable Ada Lindquist MD Unavailable Unavailable Ada Lindquist MD Unavailable Unavailable Ada Lindquist MD Unavailable Unavailable Ada Lindquist MD Unavailable Unavailable Ada Lindquist MD Unavailable Unavailable Ada Lindquist MD Unavailable Unavailable Ada Lindquist MD Unavailable Unavailable Ada Lindquist MD Unavailable Unavailable Ada Lindquist MD Unavailable Unavailable Ada Lindquist MD Unavailable Unavailable Ada Lindquist MD Unavailable Unavailable Ada Lindquist MD Unavailable Unavailable Ada Lindquist MD Unavailable Unavailable Ada Lindquist MD Unavailable Unavailable Ada Lindquist MD Unavailable Unavailable Ada Lindquist MD Unavailable Unavailable Ada Lindquist MD Unavailable Unavailable Ada Lindquist MD Unavailable Unavailable Ada Lindquist MD Unavailable Unavailable Ada Lindquist MD Unavailable Unavailable Ada Lindquist MD Unavailable Unavailable Ada Lindquist MD Unavailable Unavailable Ada Lindquist MD Unavailable Unavailable Ada Lindquist MD Unavailable Unavailable Ada Lindquist MD Unavailable Unavailable Ada Lindquist MD Unavailable Unavailable Ada Lindquist MD Unavailable Unavailable Ada Lindquist MD Unavailable Unavailable Ada Lindquist MD Unavailable Unavailable Ada Lindquist MD Unavailable Unavailable Ada Lindquist MD Unavailable Unavailable Ada Lindquist MD Unavailable Unavailable Ada Lindquist MD Unavailable Unavailable Ada Lindquist MD Unavailable Unavailable Ada Lindquist MD Unavailable Unavailable Ada Lindquist MD Unavailable Unavailable Ada Lindquist MD Unavailable Unavailable Ada Lindquist MD Unavailable Unavailable Ada Lindquist MD Unavailable Unavailable Ada Lindquist MD Unavailable Unavailable Ada Lindquist MD Unavailable Unavailable Ada Lindquist MD Unavailable Unavailable Ada Lindquist MD Unavailable Unavailable Ada Lindquist MD Unavailable Unavailable Ada Lindquist MD Unavailable Unavailable Ada Lindquist MD Unavailable Unavailable Ada Lindquist MD Unavailable Unavailable Ada Lindquist MD Unavailable Unavailable Ada Lindquist MD Unavailable Unavailable Ada Lindquist MD Unavailable Unavailable Ada Lindquist MD Unavailable Unavailable Ada Lindquist MD Unavailable Unavailable Ada Lindquist MD Unavailable Unavailable Monnat NUT TIGHTENER, Guerda Unavailable Unavailable Monnat NUT TIGHTENER, Guerda Unavailable Unavailable Bryan BEAR MD Unavailable Unavailable Bryan BEAR MD Unavailable Unavailable Bryan BEAR MD Unavailable Unavailable Bryan BEAR MD Unavailable Unavailable Bryan BEAR MD Unavailable Unavailable Bryan BEAR MD Unavailable Unavailable Bryan BEAR MD Unavailable Unavailable Bryan BEAR MD Unavailable Unavailable Bryan BEAR MD Unavailable Unavailable Bryan BEAR MD Unavailable Unavailable Bryan BEAR MD Unavailable Unavailable Bryan BEAR MD Unavailable Unavailable Bryan BEAR MD Unavailable Unavailable Bryan BEAR MD Unavailable Unavailable Bryan BEAR MD Unavailable Unavailable Bryan BEAR MD Unavailable Unavailable Bryan BEAR MD Unavailable Unavailable Bryan BEAR MD Unavailable Unavailable Bryan BEAR MD Unavailable Unavailable Bryan BEAR MD Unavailable Unavailable Bryan BEAR MD Unavailable Unavailable Bryan BEAR MD Unavailable Unavailable Bryan BEAR MD Unavailable Unavailable Bryan BEAR MD Unavailable Unavailable Bryan BEAR MD Unavailable Unavailable Bryan BEAR MD Unavailable Unavailable Bryan BEAR MD Unavailable Unavailable Bryan BEAR MD Unavailable Unavailable Bryan BEAR MD Unavailable Unavailable Bryan BEAR MD Unavailable Unavailable Bryan BEAR MD Unavailable Unavailable Bryan BEAR MD Unavailable Unavailable Bryan BEAR MD Unavailable Unavailable Bryan BEAR MD Unavailable Unavailable Bryan BEAR MD Unavailable Unavailable Bryan BEAR MD Unavailable Unavailable Bryan BEAR MD Unavailable Unavailable Bryan BEAR MD Unavailable Unavailable Bryan BEAR MD Unavailable Unavailable Bryan BEAR MD Unavailable Unavailable Bryan BEAR MD Unavailable Unavailable Bryan BEAR MD Unavailable Unavailable Bryan BEAR MD Unavailable Unavailable Bryan BEAR MD Unavailable Unavailable Bryan BEAR MD Unavailable Unavailable Bryan BEAR MD Unavailable Unavailable Bryan BEAR MD Unavailable Unavailable Bryan BEAR MD Unavailable Unavailable Bryan BEAR MD Unavailable Unavailable Bryan BEAR MD Unavailable Unavailable Bryan BEAR MD Unavailable Unavailable Bryan BEAR MD Unavailable Unavailable Bryan BEAR MD Unavailable Unavailable Bryan BEAR MD Unavailable Unavailable Bryan BEAR MD Unavailable Unavailable Bryan BEAR MD Unavailable Unavailable Bryan BEAR MD Unavailable Unavailable Bryan BEAR MD Unavailable Unavailable Bryan BEAR MD Unavailable Unavailable Bryan BEAR MD Unavailable Unavailable Bryan BEAR MD Unavailable Unavailable Bryan BEAR MD Unavailable Unavailable Bryan BEAR MD Unavailable Unavailable Bryan BEAR MD Unavailable Unavailable Bryan BEAR MD Unavailable Unavailable Bryan BEAR MD Unavailable Unavailable Bryan BEAR MD Unavailable Unavailable Bryan BEAR MD Unavailable Unavailable Brayn BEAR MD Unavailable Unavailable Bryan BEAR MD Unavailable Unavailable Bryan BEAR MD Unavailable Unavailable Bryan BEAR MD Unavailable Unavailable Bryan BEAR MD Unavailable Unavailable Bryan BEAR MD Unavailable Unavailable Bryan BEAR MD Unavailable Unavailable Bryan BEAR MD Unavailable Unavailable Bryan BEAR MD Unavailable Unavailable Bryan BEAR MD Unavailable Unavailable Bryan BEAR MD Unavailable Unavailable Bryan BEAR MD Unavailable Unavailable Bryan BEAR MD Unavailable Unavailable Bryan BEAR MD Unavailable Unavailable Bryan BEAR MD Unavailable Unavailable Bryan BEAR MD Unavailable Unavailable Bryan BEAR MD Unavailable Unavailable Bryan BEAR MD Unavailable Unavailable Bryan BEAR MD Unavailable Unavailable Bryan BEAR MD Unavailable Unavailable Bryan BEAR MD Unavailable Unavailable Bryan BEAR MD Unavailable Unavailable Bryan BEAR MD Unavailable Unavailable Bryan BEAR MD Unavailable Unavailable Bryan BEAR MD Unavailable Unavailable Bryan BEAR MD Unavailable Unavailable MARY VALLES MD Unavailable Unavailable MARY VALLES MD Unavailable Unavailable MARY VALLES MD Unavailable Unavailable MARY VALLES MD Unavailable Unavailable MARY VALLES MD Unavailable Unavailable MARY VALLES MD Unavailable Unavailable MARY VALLES MD Unavailable Unavailable MARY VALLES MD Unavailable Unavailable MARY VALLES MD Unavailable Unavailable MARY VALLES MD Unavailable Unavailable MARY VALLES MD Unavailable Unavailable MARY VALLES MD Unavailable Unavailable MARY VALLES MD Unavailable Unavailable MARY VALLES MD Unavailable Unavailable MARY VALLES MD Unavailable Unavailable MARY VALLES MD Unavailable Unavailable MARY VALLES MD Unavailable Unavailable MARY VALLES MD Unavailable Unavailable MARY VALLES MD Unavailable Unavailable MARY VALLES MD Unavailable Unavailable MARY VALLES MD Unavailable Unavailable MARY VALLES MD Unavailable Unavailable MARY VALLES MD Unavailable Unavailable MARY VALLES MD Unavailable Unavailable MARY VALLES MD Unavailable Unavailable MARY VALLES MD Unavailable Unavailable MARY VALLES MD Unavailable Unavailable MARY VALLES MD Unavailable Unavailable MARY VALLES MD Unavailable Unavailable MARY VALLES MD Unavailable Unavailable MARY VALLES MD Unavailable Unavailable MARY VALLES MD Unavailable Unavailable MARY VALLES MD Unavailable Unavailable MARY VALLES MD Unavailable Unavailable MARY VALLES MD Unavailable Unavailable MARY VALLES MD Unavailable Unavailable MARY VALLES MD Unavailable Unavailable MARY VALLES MD Unavailable Unavailable MARY VALLES MD Unavailable Unavailable MARY VALLES MD Unavailable Unavailable MARY VALLES MD Unavailable Unavailable MARY VALLES MD Unavailable Unavailable MARY VALLES MD Unavailable Unavailable MARY VALLES MD Unavailable Unavailable MARY VALLES MD Unavailable Unavailable MARY VALLES MD Unavailable Unavailable MARY VALLES MD Unavailable Unavailable MARY VALLES MD Unavailable Unavailable MARY VALLES MD Unavailable Unavailable MARY VALLES MD Unavailable Unavailable MARY VALLES MD Unavailable Unavailable MARY VALLES MD Unavailable Unavailable MARY VALLES MD Unavailable Unavailable MARY VALLES MD Unavailable Unavailable AMRY VALLES MD Unavailable Unavailable MARY VALLES MD Unavailable Unavailable MARY VALLES MD Unavailable Unavailable MARY VALLES MD Unavailable Unavailable MARY VALLES MD Unavailable Unavailable MARY VALLES MD Unavailable Unavailable MARY VALLES MD Unavailable Unavailable MARY VALLES MD Unavailable Unavailable MARY VALLES MD Unavailable Unavailable MARY VALLES MD Unavailable Unavailable MARY VALLES MD Unavailable Unavailable MARY VALLES MD Unavailable Unavailable MARY VALLES MD Unavailable Unavailable MARY VALLES MD Unavailable Unavailable MARY VALLES MD Unavailable Unavailable MARY VALLES MD Unavailable Unavailable MARY VALLES MD Unavailable Unavailable MARY VALLES MD Unavailable Unavailable MARY VALLES MD Unavailable Unavailable MARY VALLES MD Unavailable Unavailable MARY VALLES MD Unavailable Unavailable MARY VALLES MD Unavailable Unavailable MARY VALLES MD Unavailable Unavailable MARY VALLES MD Unavailable Unavailable MARY VALLES MD Unavailable Unavailable MARY VALLES MD Unavailable Unavailable MARY VALLES MD Unavailable Unavailable MARY VALLES MD Unavailable Unavailable MARY VALLES MD Unavailable Unavailable MARY VALLES MD Unavailable Unavailable MARY VALLES MD Unavailable Unavailable ABEL, M GIANNI PA Unavailable Unavailable ABEL, M GIANNI PA Unavailable Unavailable ABEL, M GIANNI PA Unavailable Unavailable ABEL, M GIANNI PA Unavailable Unavailable ABEL, M GIANNI PA Unavailable Unavailable ABEL, M GIANNI PA Unavailable Unavailable ABEL, M GIANNI PA Unavailable Unavailable ABEL, M GIANNI PA Unavailable Unavailable ABEL, M GIANNI PA Unavailable Unavailable ABEL, M GIANNI PA Unavailable Unavailable ABEL, M GIANNI PA Unavailable Unavailable ABEL, M GIANNI PA Unavailable Unavailable ABEL, M GIANNI PA Unavailable Unavailable ABEL, M GIANNI PA Unavailable Unavailable ABEL, M GIANNI PA Unavailable Unavailable ABEL, M GIANNI PA Unavailable Unavailable ABEL, M GIANNI PA Unavailable Unavailable ABEL, M GIANNI PA Unavailable Unavailable ABEL, M GIANNI PA Unavailable Unavailable ABEL, M GIANNI PA Unavailable Unavailable ABEL, M GIANNI PA Unavailable Unavailable ABEL, M GIANNI PA Unavailable Unavailable ABEL, M GIANNI PA Unavailable Unavailable ABEL, M GIANNI PA Unavailable Unavailable ABEL, M GIANNI PA Unavailable Unavailable ABEL, M GIANNI PA Unavailable Unavailable ABEL, M GIANNI PA Unavailable Unavailable ABEL, M GIANNI PA Unavailable Unavailable ABEL, M GIANNI PA Unavailable Unavailable ABEL, M GIANNI PA Unavailable Unavailable ABEL, M GIANNI PA Unavailable Unavailable ABEL, M GIANNI PA Unavailable Unavailable ABEL, M GIANNI PA Unavailable Unavailable ABEL, M GIANNI PA Unavailable Unavailable ABEL, M GIANNI PA Unavailable Unavailable Re-disclosure Warning The records that you are about to access may contain information from federally-assisted alcohol or drug abuse programs. If such information is present, then the following federally mandated warning applies: This information has been disclosed to you from records protected by federal confidentiality rules (42 CFR part 2). The federal rules prohibit you from making any further disclosure of this information unless further disclosure is expressly permitted by the written consent of the person to whom it pertains or as otherwise permitted by 42 CFR part 2. A general authorization for the release of medical or other information is NOT sufficient for this purpose. The Federal rules restrict any use of the information to criminally investigate or prosecute any alcohol or drug abuse patient.The records that you are about to access may contain highly sensitive health information, the redisclosure of which is protected by Article 27-F of the [facility] Public Health law. If you continue you may have access to information: Regarding HIV / AIDS; Provided by facilities licensed or operated by the [facility] Office of Mental Health; or Provided by the [facility] Office for People With Developmental Disabilities. If such information is present, then the following [facility] mandated warning applies: This information has been disclosed to you from confidential records which are protected by state law. State law prohibits you from making any further disclosure of this information without the specific written consent of the person to whom it pertains, or as otherwise permitted by law. Any unauthorized further disclosure in violation of state law may result in a fine or correction sentence or both. A general authorization for the release of medical or other information is NOT sufficient authorization for further disc losure. Family History Family Member Name Family Member Gender Family Member Status Date o f Status Description Data Source(s) Unknown Unknown Problem [facility] ([facility]) father Unknown Male Problem [facility] ([facility]) Encounters Encounter Providers Location Date Indications Data Source(s ) Outpatient Attender: GIANNI Joaquin/Darshan/Chon/Evelyn de la torre 12/10/2020 08:00:00 AM EDT [facility] ([facility]) Outpatient Attender: Guerda Valadez NPReferrer: Lars Lindquist MD 09/12/2020 07:27:05 AM EDT [facility] Recurring Patient Attender: AGUSTINA BEAR MDReferrer: Lars Lindquist MD 09/05/2020 01:16:05 PM EDT [facility] Rec[facility] Patient Attender: AGUSTINA BEAR MDReferrer: Lars Lindquist MD 08/23/2020 02:23:58 PM EDT [facility] Recurring Patient Attender: AGUSTINA DONALDSONeferrer: Lars Lindquist MD 08/16/2020 01:06:38 PM EDT [facility] Outpatient Attender: Lars Elaine 08/13 10:30:00 AM EDT [facility] ([facility] ) Outpatient Attender: Lars Elaine 03/09 01:00:00 PM EST [facility] ([facility] ) Outpatient Attender: FOREIGN VALLES MDReferrer: Lars Martinez 02/15/2020 12:52:03 PM EDT [facility] Immunizations Vaccine Date Status Description Data Source(s) COVID-19 VACCINE Moderna 02/11/2021 12:00:00 AM EDT completed [facility] Vaccine Series Complete: NOThis Data was Submitted to [facility]. Shingrix Zoster Vaccine (HZV), Recombinant, Subunit, A djuvanted 01/31/2020 11:33:00 AM EDT completed [facility] ([facility]) This CVX code allows reporting of a vacc ination when formulation is unknown (for example, when recording a Influenza vaccination when noted on a vaccination card) 01/18/2020 11:25:00 AM EDT completed MEDEN T ([facility]) Medications Medication Brand Name Start Date Product Form Dose Route Admi nistrative Instructions Pharmacy Instructions Status Indications Reaction Description Data Source(s) Onetouch Club Lancets Fine Point 01/07/2021 12:00:00 AM EDT active [facility] ([facility]) Cephalexin 500 MG Oral Capsule [Keflex] Keflex 03/09/2020 12:00:0 0 AM EST ORAL active [facility] ([facility]) Insurance Providers Payer name Policy type / Coverage type Policy ID Covered republican ID Covered republican's relationship to daly Policy Daly Plan Information [employer] [id number] [place] [id number] [place] [id number] [place] [id number] POMCO [id number] [place]2 [id number] POMCO [id number] [place]2 [id number] [facility] [id number] [place]2 [id number] POMCO [id number] [place]2 [id number] POM[employer] U [id number] Spouse [id number] POMCO [id number] PA [id number] POMCO [id number] [facility] [id number] MEDICARE A [id number] Self [id number] T Medicare C [id number] SELF [id number] T Medicare Natl Govt Servic Medicare Primary [id number] Self [id number] Medicare Natl Govt Servic Medicare Primary [id number] Self [id number] MEDICARE [id number] SP [id number] A Medicare Natl Govt Servic Medicare Primary [id number] Self [id number] Medicare Natl Govt Servic Medicare Primary [id number] Self [id number] MEDICARE [id number] Medicare Natl Govt Servic Medicare Primary [id number] Self [id number] Medicare Natl Govt Servic Medicare Primary [id number] Self MEDICARE A [id number] Self [id number] A MEDICARE [id number] Isis [id number] T Umr ([place]) Medigap Part B [id number] Family Dependent [id number] UMR [facility] [id number] WI2 [id number] UMR F [id number] SPOUSE [id number] UMR F [id number] SELF [id number] UMR F [id number] SELF [id number] [place] Medigap Part B [id number] Family Dependent [id number] Medicare Natl Gov't Servi Medicare Primary [id number] Self [id number] [place] Ppo Medigap Part B [id number] Family Dependent [id number] [place] Ppo Medigap Part B [id number] Family Dependent [id number] MEDICARE [id number] SP [id number] T Medicare Natl Gov't Servi Medicare Primary [id number] Self [place] Commercial [id number] Family Dependent [place] Ppo Medigap Part B [id number] Family Dependent [id number] [employer] O [id number] U [id number] [place] Jur[place] A [facility] C [id number] SELF [id number] Medicare C [id number] SELF [id number] SELF PAY ONLY [id number] SP [id number] UMR O [id number] S [id number] MEDICARE C [id number] S [id number] Umr/Uhc/[place] Medigap Part B [id number] Family Dependent [id number] Medicare Natl Gov't Servi Medicare Primary [id number] Self [id number] Umr/Uhc/[place] Medigap Part B [id number] Family Dependent [id number] Medicare Natl Gov't Servi Medicare Primary [id number] Self [id number] [place]/Umr (Old) Medigap Part B [id number] Family Dependent [id number] Umr/Uhc/[place] Medigap Part B [id number] Family Dependent [id number] Medicare Natl Gov't Servi Medicare Primary [id number] Self 1 [id number] [place] Medigap Part B [id number] Family Dependent [id number] Umr/Uhc/[place] Medigap Part B [id number] Family Dependent [id number] Medicare Natl Gov't Servi Medicare Primary [id number] Self 0 [id number] [place]/Umr (Old) Medigap Part B [id number] Family Dependent [id number] UMR [facility] [id number] Umr Commercial [id number] Self [id number] Medicare [facility] Medicare Primary [id number] Self [id number] [place]/Umr (Old) Medigap Part B [id number] [id number] Family Dependent [id number] MEDICARE C [id number] S [id number] A [employer] PPO O [id number] S [id number] [place] Medigap Part B [id number] Family Dependent [id number] Medicare Natl Gov't Servi Medicare Primary [id number] Self 0 [id number] [place] Medigap Part B [id number] Family Dependent [id number] Medicare Natl Gov't Servi Medicare Primary [id number] Self 0 [id number] Problems, Conditions, and Diagnoses No Information Surgeries/Procedures Procedure Description Date Indications Data Source(s) OFFICE OUTPATIENT VISIT 15 MINUTES 12/10/2020 12:00:00 AM EDT [facility] ([facility] ) OFFICE OUTPATIENT VISIT 25 MINUTES 08/13/2020 12:00:00 AM EDT [facility] ([facility]) Results ID Date Data Source [id number] 01/10/2021 12:00:00 AM EDT [facility] Name Value Range Interpretation Code Description Data Areli rce(s) Supporting Document(s) SARS-CoV2 Rapid Antigen Positive [facility] ID Date Data Source [id number] 01/07/2021 11:46:00 AM EDT [facility] ([facility]) Name Value Range Interpretation Code Description Data Areli rce(s) Supporting Document(s) Urine Creatinine 69.8 mg/dL 30.0-125.0 [facility] ([facility]) Microalb/Creat Ratio 11.6 ug/mg 0.0-30.0 [facility] ( [facility]) Microalbumin Urine 8.1 mg/L 1.3-20.0 [facility] ([facility]) ID Date Data Source [id number] 01/04/2021 07:58:00 AM EDT [facility] ([facility]) Name Value Range Interpretation Code Description Data Areli rce(s) Supporting Document(s) Thyrotropin [Units/volume] in Serum or Plasma by Detec tion limit <= 0.05 mIU/L 3.75 uIU/mL 0.36-3.74 [facility] ([facility] ) ID Date Data Source [id number] 01/04/2021 07:58:00 AM EDT [facility] ([facility]) Name Value Range Interpretation Code Description Data Areli rce(s) Supporting Document(s) Cholesterol [Mass/volume] in Serum or Plasma 188 mg/dL 131-200 [facility] ([facility]) Triglyceride [Mass/volume] in Serum or Plasma 261 mg/dL 30-150 [facility] ([facility]) Cholesterol in HDL [Mass/volume] in Serum or Plasma 37 mg/dL 35-60 [facility] ([facility]) Cholesterol in LDL [Mass/volume] in Serum or Plasma by calcu lation 99 CALC 50-159 [facility] ([facility]) ID Date Data Source [id number] 01/04/2021 07:58:00 AM EDT [facility] ([facility]) Name Value Range Interpretation Code Description Data Areli rce(s) Supporting Document(s) Glucose [Mass/volume] in Serum or Plasma 122 mg/dL 74-99 [facility] ([facility]) 100-125 mg/dL PRE-DIABETES/FASTING >126 mg/dL DIABETES/FASTING Creatinine 1.1 mg/dL 0.6-1.3 [facility] ([facility] Urea nitrogen [Mass/volume] in Serum or Plasma 22 mg/dL 7-18 [facility] ([facility]) Sodium [Moles/volume] in Serum or Plasma 142 meq/L 136-145 [facility] ([facility]) Potassium [Moles/volume] in Serum or Plasma 4.1 meq/L 3.5-5.1 [facility] ([facility]) Carbon dioxide, total [Moles/volume] in Serum or Plasma 31 meq/L 21 -32 [facility] ([facility]) Chloride [Moles/volume] in Serum or Plasma 106 meq/L 98-107 [facility] ([facility]) Alkaline phosphatase isoenzyme [Units/volume] in Serum or Pl asma 63 mg/dL 46-116 [facility] ([facility]) Calcium [Mass/volume] in Serum or Plasma 9.0 mg/dL 8.5-10.1 [facility] ([facility]) Total Bilirubin 0.8 mg/dL 0.2-1.0 [facility] ([facility]) Aspartate aminotransferase [Enzymatic activity/volume] in Serum or Plasma 19 U/L 15-37 [facility] ([facility] ) Alanine aminotransferase [Enzymatic activity/volume] in Seru m or Plasma 54 U/L 12-78 [facility] ([place] [facility]) A/G Ratio 1.52 CALC 1.00-1.90 [facility] [facility] Proteinase 3 Ab [Units/volume] in Serum 6.3 g/dL 6.4-8.2 [facility] ([place] [facility]) Albumin [Mass/volume] in Serum or Plasma 3.8 g/dL 3.4-5.0 [facility] ([place] [facility]) Glomerular filtration rate/1.73 sq M pre dicted among non-blacks [Volume Rate/Area] in Serum or Plasma by Creatinine-based formula (MDRD) Laboratory test result [facility] ([facility] [facility] ) Glomerular filtration rate/1.73 sq M pre dicted among blacks [Volume Rate/Area] in Serum or Plasma by Creatinine-based formula (MDRD) Laboratory test result [facility] ([facility] [facility]) <content>CHRONIC KIDNEY DISEASE STAGING PER NKF</content>
<content></content>
<content>STAGE I & II GFR >= 60 NORMAL TO MILDLY DECREASED</content>
<content>STAGE III GFR 30-59 MODERATELY DECREASED</content>
<content>STAGE IV GFR 15-29 SEVERELY DECREASED</content>
<content>STAGE V GFR <15 VERY LITTLE GFR LEFT</content>
<content>ESRD GFR <15 ON GENERATION TECHNOLOGIST</content>
<content></content> ID Date Data Source [id number] 01/04/2021 07:58:00 AM EDT [facility] ([facility] Name Value Range Interpretation Code Description Data Areli rce(s) Supporting Document(s) Hemoglobin A1c/Hemoglobin.total in Blood 6.7 % [facility] ([facility] [facility]) Lab Result Notes: Pre-Diabetes 5.7 - 6.4 % Diabetes = or > 6.5% Glucose mean value [Mass/volume] in Blood Estimated fr om glycated hemoglobin 146 mg/dL 60-110 [facility] ([facility] ) ID Date Data Source [id number] 01/04/2021 07:58:00 AM EDT [facility] ([facility]) Name Value Range Interpretation Code Description Data Areli rce(s) Supporting Document(s) Erythrocytes [#/volume] in Blood by Automated count 4.73 x10*6/UL 4.2 0-6.30 [facility] ([facility]) Hemoglobin [Mass/volume] in Blood 14.1 g/dL 12.0-18.0 [facility] ([facility]) Leukocytes [#/volume] in Blood by Automated count 4.6 x10*3/UL 4.1-10 .9 [facility] ([facility]) Hematocrit [Volume Fraction] of Blood by Automated count 41.4 % 3 7.0-51.0 [facility] ([facility]) MCH 29.9 pg 26.0-32.0 [facility] ([place] [facility]) MCV 87.5 fL 80.0-97.0 [facility] ([place] [facility]) Erythrocyte distribution width [Ratio] by Automated count 12.7 % 11.6-13.7 [facility] ([facility]) MCHC 34.2 g/dL 31.0-38.0 [facility] ([place] [facility]) MPV 8.4 FL 7.8-11.0 [facility] ([place] [facility]) Platelets [#/volume] in Blood by Automated count 182 x10*3/UL 140-440 [facility] ([facility]) Lymph % 33.9 % 10.0-58.5 [facility] ([place] [facility]) Mid % 6.1 % 1.7-9.3 [facility] ([place] [facility]) Neut % 60.0 % 37.0-92.0 [facility] [facility] Lymph # 1.5 x10*3/UL 0.6-4.1 [facility] ([facility]) Neut # 2.7 x10*3/UL 2.0-7.8 [facility] ([facility]) Mid # 0.4 x10*3/UL 0.1-0.6 [facility] ([facility]) ID Date Data Source [id number] 01/04/2021 07:58:00 AM EDT [facility]) Name Value Range Interpretation Code Description Data Areli rce(s) Supporting Document(s) Hemoglobin A1c/Hemoglobin.total in Blood Laboratory test result [facility] ([facility]) ID Date Data Source [id number] 01/04/2021 07:57:00 AM EDT [facility] ([facility]) Name Value Range Interpretation Code Description Data Areli rce(s) Supporting Document(s) Prostate specific Ag [Mass/volume] in Serum or Plasma 1.42 ng/mL [facility] ([facility]) This assay was performed on the Siemens Dimension EXL using the B- Galactosidase/CPRG methodology and should not be compared interchangeably with other methods. The PSA should not be used alone as a screening test for the presence or absence of malignant disease. ID Date Data Source [id number] 09/12/2020 07:27:05 AM EDT [facility] PCName: Kermit FongRadhaOB: 1950Provider: Harjit Valadez: 09/05/2020 Reason For VisitPaerika Jones is here today for bilat thumb pain. Kermit had his second Covid vaccine on June 2020. Kermit Jones is an established patient here for follow up. 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 History of Present IllnessPatient is seen today for follow-up evaluation of chronic bilateral thumb pain. He reports he had great relief from his injections into his CMC joints in the fall 2019. His symptoms returned about a month and a half ago and he has had increased pain since. He has been using topical creams and his MetaGrip braces as needed. He comes in today requesting bilateral thumb cortisone injections. He does inquire about CMC arthroplasty, but states he is not ready to seek surgical intervention at this time. The patient does note clicking of his left small finger PIP joint. He reports he has had this for 40 years. He den ies any injury to that finger. He states it has gotten worse over the winter. Patient denies any numbness or tingling to his bilateral hands. 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 I have explained that osteoarthritis is a chronic, progressive illness of worsening pain and function over time. I explained that patients with thumb CMC osteoarthritis often experience significant pain in the thumb and weakness of manager mass strength. I have explained that management options include observation, splinting, anti-inflammatory medications both orally and topically, warm soaks may be used in the morning and evening, cortisone injections, and surgical intervention if all nonoperative management fails. However, the mainstay of conservative treatment is primarily splint immobilization and cortisone injections. The patient understands this. He does elect to proceed with bilateral thumb CMC joint cortisone injections today. I did answer his questions pertaining to CMC arthroplasty, but he is not ready to proceed with surgical intervention. He reports he will continue with cortisone injections until they no longer provide long-term relief for him.Patient will follow up as needed, and is happy with this plan. Work / School NoteThe percentage of temporary impairment is 0%. This document was dictated and electronically signed using O[employer]Met[employer] software. A reasonable attempt at proof reading has been made to minimize errors. Please call with any questions. Signatures Electronically signed by : Guerda Valadez NP; Sep 05 2020 1:55PM EST (Author) Electronically signed by : Bryan Valles M.D.; Sep 12 2020 7:27AM EST Name Value Range Interpretation Code Description Data Areli rce(s) Supporting Document(s) ID Date Data Source [id number] 08/10/2020 08:06:00 AM EDT [facility] ([facility]) Name Value Range Interpretation Code Description Data Areli rce(s) Supporting Document(s) Thyrotropin [Units/volume] in Serum or Plasma by Detec tion limit <= 0.05 mIU/L 3.73 uIU/mL 0.36-3.74 [facility] ([facility] ) ID Date Data Source [id number] 08/10/2020 08:06:00 AM EDT [facility] ([facility]) Name Value Range Interpretation Code Description Data Areli rce(s) Supporting Document(s) Cholesterol [Mass/volume] in Serum or Plasma 209 mg/dL 131-200 [facility] ([facility]) Triglyceride [Mass/volume] in Serum or Plasma 338 mg/dL 30-150 [facility] ([facility]) Cholesterol in HDL [Mass/volume] in Serum or Plasma 37 mg/dL 35-60 [facility] ([facility]) Cholesterol in LDL [Mass/volume] in Serum or Plasma by calcu lation 104 CALC 50-159 [facility] ([facility]) ID Date Data Source [id number] 08/10/2020 08:06:00 AM EDT [facility] ([facility]) Name Value Range Interpretation Code Description Data Areli rce(s) Supporting Document(s) Glucose [Mass/volume] in Serum or Plasma 168 mg/dL 74-99 [facility] ([facility]) 100-125 mg/dL PRE-DIABETES/FASTING >126 mg/dL DIABETES/FASTING Urea nitrogen [Mass/volume] in Serum or Plasma 25 mg/dL 7-18 [facility] ([facility]) Potassium [Moles/volume] in Serum or Plasma 3.9 meq/L 3.5-5.1 [facility] ([facility]) Sodium [Moles/volume] in Serum or Plasma 139 meq/L 136-145 [facility] ([facility]) Creatinine 1.2 mg/dL 0.6-1.3 [facility] ([facility]) Calcium [Mass/volume] in Serum or Plasma 8.9 mg/dL 8.5-10.1 [facility] ([facility]) Carbon dioxide, total [Moles/volume] in Serum or Plasma 29 meq/L 21 -32 [facility] ([facility]) Chloride [Moles/volume] in Serum or Plasma 102 meq/L 98-107 [facility] ([facility]) Alkaline phosphatase isoenzyme [Units/volume] in Serum or Pl asma 70 mg/dL 46-116 [facility] ([facility]) Total Bilirubin 0.9 mg/dL 0.2-1.0 [facility] ([facility]) Aspartate aminotransferase [Enzymatic activity/volume] in Serum or Plasma 20 U/L 15-37 [facility] ([facility] ) Alanine aminotransferase [Enzymatic activity/volume] in Seru m or Plasma 48 U/L 12-78 [facility] ([facility] [facility]) Albumin [Mass/volume] in Serum or Plasma 4.2 g/dL 3.4-5.0 [facility] ([facility] [facility]) Proteinase 3 Ab [Units/volume] in Serum 6.9 g/dL 6.4-8.2 [facility] ([facility] [facility]) A/G Ratio 1.56 CALC 1.00-1.90 [facility] [facility] Glomerular filtration rate/1.73 sq M pre dicted among non-blacks [Volume Rate/Area] in Serum or Plasma by Creatinine-based formula (MDRD) 60 mL/min [facility] ([place] [facility]) Glomerular filtration rate/1.73 sq M pre dicted among blacks [Volume Rate/Area] in Serum or Plasma by Creatinine-based formula (MDRD) Laboratory test result [facility] ([facility]) <content>CHRONIC KIDNEY DISEASE STAGING PER NKF</content>
<content></content>
<content>STAGE I & II GFR >= 60 NORMAL TO MILDLY DECREASED</content>
<content>STAGE III GFR 30-59 MODERATELY DECREASED</content>
<content>STAGE IV GFR 15-29 SEVERELY DECREASED</content>
<content>STAGE V GFR <15 VERY LITTLE GFR LEFT</content>
<content>ESRD GFR <15 ON GENERATION TECHNOLOGIST</content>
<content></content> ID Date Data Source [id number] 08/10/2020 08:06:00 AM EDT [facility] ([facility]) Name Value Range Interpretation Code Description Data Areli rce(s) Supporting Document(s) Hemoglobin A1c/Hemoglobin.total in Blood 7.0 % [facility] ([facility]) Lab Result Notes: Pre-Diabetes 5.7 - 6.4 % Diabetes = or > 6.5% Glucose mean value [Mass/volume] in Blood Estimated fr om glycated hemoglobin 154 mg/dL 60-110 [facility] ([facility] ) ID Date Data Source [id number] 08/10/2020 08:06:00 AM EDT [facility] ([facility]) Name Value Range Interpretation Code Description Data Areli rce(s) Supporting Document(s) Leukocytes [#/volume] in Blood by Automated count 5.2 x10*3/UL 4.1-10 .9 [facility] ([facility]) Erythrocytes [#/volume] in Blood by Automated count 5.04 x10*6/UL 4.2 0-6.30 [facility] ([facility]) Hemoglobin [Mass/volume] in Blood 15.0 g/dL 12.0-18.0 [facility] ([facility]) Hematocrit [Volume Fraction] of Blood by Automated count 43.6 % 3 7.0-51.0 [facility] ([facility]) MCV 86.6 fL 80.0-97.0 [facility] ([place] [facility]) MCH 29.7 pg 26.0-32.0 [facility] ([facility]) MCHC 34.3 g/dL 31.0-38.0 [facility] ([facility]) Platelets [#/volume] in Blood by Automated count 205 x10*3/UL 140-440 [facility] ([facility]) Erythrocyte distribution width [Ratio] by Automated count 13.1 % 11.6-13.7 [facility] ([facility]) MPV 8.7 FL 7.8-11.0 [facility] ([facility]) Mid % 5.7 % 1.7-9.3 [facility] ([facility]) Lymph % 28.3 % 10.0-58.5 [facility] ([facility]) Neut % 66.0 % 37.0-92.0 [facility] ([facility]) Lymph # 1.4 x10*3/UL 0.6-4.1 [facility] ([facility]) Neut # 3.4 x10*3/UL 2.0-7.8 [facility] ([facility]) Mid # 0.4 x10*3/UL 0.1-0.6 [facility] ([facility]) ID Date Data Source [id number] 08/10/2020 08:06:00 AM EDT [facility] ([facility]) Name Value Range Interpretation Code Description Data Areli rce(s) Supporting Document(s) Hemoglobin A1c/Hemoglobin.total in Blood Laboratory test result [facility] ([facility] [facility]) ID Date Data Source [id number] 03/29/2020 12:00:00 AM EST [facility] Name Value Range Interpretation Code Description Data Areli rce(s) Supporting Document(s) [facility]2 [facility] This lab was ordered by [facility] and reported by [facility]. ID Date Data Source [id number] 03/06/2020 10:30:00 AM EST [facility] ([facility]) Name Value Range Interpretation Code Description Data Areli rce(s) Supporting Document(s) Laboratory test finding (navigational concept) Laboratory test result [facility] ([facility] [facility]) Test: COVID-19 Nasal/Naspharynx Result: NOT DETECTED Reference Units: Not detected Note: Please consider re-collection of a new specimen, if clinically indicated. Note: The COVID-19 assay is under Emergency Use Authorization(EUA) by the U.S. Food and Drug Administration. [facility] is designated as a high complexity laboratory by the Clinical Laboratory Improvement Amendments of 1988(CLIA) and is qualified to perform this test. ASSAY INFORMATION: Real Time RT-PCR or TMA. ID Date Data Source [id number] 03/06/2020 12:00:00 AM EST [facility] Name Value Range Interpretation Code Description Data Areli rce(s) Supporting Document(s) 2019-nCoV RNA XXX ALBERTA+probe-Imp [facility] This lab was ordered by [facility] and reported by [facility]. ID Date Data Source [id number] 02/15/2020 12:52:03 PM EDT [facility] PCName: Kermit FongsDOB: 1950Provider: Bryan Valles: 02/15/2020 Reason For VisitPaerika Jones is here today for Bilateral thumbs. Kermit Jones is an established patient here for follow up. Kermit presents for a follow up from receiving injections, states helped temporarily. 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 Plan.HISTORY: Previous injection to get him through the summer. He like to discuss another injection. Insert moreEXAM: The patient appears well-developed, well-nourished, and in no acute distress. The patient's body habitus is approximately normal weight. The patient is oriented to person, place and time. The patient's mood is appropriate to situation. The patient's coordination is normal.There continues to be focal tenderness to palpation at the first carpometacarpal joint, as well as crepitus with axial loading and circumduction of the thumb.Otherwise, bilateral upper extremities show no d eformities, no skin lesions and full range of motion of elbows, wrists and hands without significant discomfort. The patient is neurovascularly intact to light touch and has brisk capillary refill to all digits. There are no signs of disuse. There are no dystrophic changes. There is no allodynia. There are no skin changes. X-RAYS: X-rays were visualized, and interpreted in the office today for diagnostic purposes of the left thumb . Views: AP, Lateral and oblique. Films show CMC arthritis involvement of the thumb carpometacarpal joint ASSESSMENT/PLAN:-bilateral stage III thumb CMC (carpometacarpal) joint primary osteoarthritisTravels from [place], transmission repair shop ownerA repeat injection was provided (second to bilateral thumbs by me, previous injections by my PA). the patient opted to undergo a cortisone injection, and I placed 1 cc Celestone and 1 cc of 1% lidocaine into the bilateral thumb CMC joint using sterile technique. Splint will be utilized if felt to be beneficial.After lengthy discussion, the patient is strongly considering left thumb CMC arthroplasty, after lengthy discussion of risks, benefits, alternatives. Expected recovery is that the patient will be splinted until the first postoperative visit, followed by suture removal and to transition to a custom thermoplastic orthosis and gentle therapy supervised by a hand therapist. Splinting is continued off and on through the first 6 weeks, with gentle non-resistive use at therapy and at home, followed by 6 weeks of therapist-supervised strengthening out of the splint, with goal of use for most all activities at 3 months postoperatively, final strength not until 1-2 years postoperatively. Typically thumb pain is greatly improved, with a thumb that should be usable for most all activities, but never with final strength equal to a non-arthritic normal thumb.Risks benefits and alternatives of surgery were all carefully discussed with the patient today. Risks of infection, bleeding, postoperative infection, and other complications potentially needing further surgery were all discussed, and the patient voiced understanding and may call at any time to proceed with surgery.He is traveling to [place] for the winter, will follow-up in the spring for further discussion, repeat injection versus surgical treatment. Work / School NoteThe percentage of temporary impairment is 0%. The patient is working at this time. DisclaimersThis document was dictated and electronically signed using [employer]Metrix software. A reasonable attempt at proof reading has been made to minimize errors. Please call with any questions. Signatures Electronically signed by : Bryan Valles M.D.; Feb 15 2020 12:52PM EST (Author) Name Value Range Interpretation Code Description Data Areli rce(s) Supporting Document(s) ID Date Data Source [id number] 01/12/2020 09:17:00 AM EDT [facility] Name Value Range Interpretation Code Description Data Areli rce(s) Supporting Document(s) Prostate specific Ag [Mass/volume] in Serum or Plasma 1.48 ng/mL [facility] ([facility]) This assay was performed on the [employer] Dimension EXL using the B- Galactosidase/CPRG methodology and should not be compared interchangeably with other methods. The PSA should not be used alone as a screening test for the presence or absence of malignant disease. ID Date Data Source [id number] 01/12/2020 09:16:00 AM EDT [facility] ([facility]) Name Value Range Interpretation Code Description Data Areli rce(s) Supporting Document(s) Microalbumin Urine 7.1 mg/L 1.3-20.0 [facility] Microalb/Creat Ratio 6.1 ug/mg 0.0-30.0 [facility] Urine Creatinine 116.8 mg/dL 30.0-125.0 [facility] ID Date Data Source [id number] 01/12/2020 09:16:00 AM EDT [facility] ([facility]) Name Value Range Interpretation Code Description Data Areli rce(s) Supporting Document(s) Thyrotropin [Units/volume] in Serum or Plasma by Detec tion limit <= 0.05 mIU/L 2.48 uIU/mL 0.36-3.74 [facility] ([facility] ) ID Date Data Source [id number] 01/12/2020 09:16:00 AM EDT [facility] ([facility]) Name Value Range Interpretation Code Description Data Areli rce(s) Supporting Document(s) Triglyceride [Mass/volume] in Serum or Plasma 228 mg/dL 30-150 [facility] ([facility]) Cholesterol [Mass/volume] in Serum or Plasma 174 mg/dL 131-200 [facility] ([facility]) Cholesterol in HDL [Mass/volume] in Serum or Plasma 38 mg/dL 35-60 [facility] ([facility]) Cholesterol in LDL [Mass/volume] in Serum or Plasma by calcu lation 90 CALC 50-159 [facility] ([facility]) ID Date Data Source [id number] 01/12/2020 09:16:00 AM EDT [facility] ([facility]) Name Value Range Interpretation Code Description Data Areli rce(s) Supporting Document(s) Glucose [Mass/volume] in Serum or Plasma 160 mg/dL 74-99 [facility] ([facility]) 100-125 mg/dL PRE-DIABETES/FASTING >126 mg/dL DIABETES/FASTING Creatinine 1.3 mg/dL 0.6-1.3 [facility] [facility] Sodium [Moles/volume] in Serum or Plasma 140 meq/L 136-145 [facility] ([facility]) Urea nitrogen [Mass/volume] in Serum or Plasma 19 mg/dL 7-18 [facility] ([facility]) Potassium [Moles/volume] in Serum or Plasma 3.9 meq/L 3.5-5.1 [facility] ([facility]) Carbon dioxide, total [Moles/volume] in Serum or Plasma 29 meq/L 21 -32 [facility] ([facility]) Calcium [Mass/volume] in Serum or Plasma 9.0 mg/dL 8.5-10.1 [facility] ([facility]) Chloride [Moles/volume] in Serum or Plasma 102 meq/L 98-107 [facility] ([facility]) Alanine aminotransferase [Enzymatic activity/volume] in Seru m or Plasma 27 U/L 12-78 [facility] ([facility]) Alkaline phosphatase isoenzyme [Units/volume] in Serum or Pl asma 69 mg/dL 46-116 [facility] ([facility]) Total Bilirubin 0.9 mg/dL 0.2-1.0 [facility] ([facility]) Aspartate aminotransferase [Enzymatic activity/volume] in Serum or Plasma 16 U/L 15-37 [facility] ([facility] ) A/G Ratio 1.41 CALC 1.00-1.90 [facility] ([place] [facility]) Proteinase 3 Ab [Units/volume] in Serum 6.5 g/dL 6.4-8.2 [facility] ([facility]) Albumin [Mass/volume] in Serum or Plasma 3.8 g/dL 3.4-5.0 [facility] ([place] [facility]) Glomerular filtration rate/1.73 sq M pre dicted among non-blacks [Volume Rate/Area] in Serum or Plasma by Creatinine-based formula (MDRD) 55 mL/min [facility] ([facility]) Glomerular filtration rate/1.73 sq M pre dicted among blacks [Volume Rate/Area] in Serum or Plasma by Creatinine-based formula (MDRD) Laboratory test result [facility] ([place] [facility]) <content>CHRONIC KIDNEY DISEASE STAGING PER NKF</content>
<content></content>
<content>STAGE I & II GFR >= 60 NORMAL TO MILDLY DECREASED</content>
<content>STAGE III GFR 30-59 MODERATELY DECREASED</content>
<content>STAGE IV GFR 15-29 SEVERELY DECREASED</content>
<content>STAGE V GFR <15 VERY LITTLE GFR LEFT</content>
<content>ESRD GFR <15 ON GENERATION TECHNOLOGIST</content>
<content></content> ID Date Data Source [id number] 01/12/2020 09:16:00 AM EDT [facility] ([facility]) Name Value Range Interpretation Code Description Data Areli rce(s) Supporting Document(s) Hemoglobin A1c/Hemoglobin.total in Blood 6.0 % [facility] ([place] [facility]) Lab Result Notes: Pre-Diabetes 5.7 - 6.4 % Diabetes = or > 6.5% Glucose mean value [Mass/volume] in Blood Estimated fr om glycated hemoglobin 125 mg/dL 60-110 [facility] ([place] [facility] ) ID Date Data Source [id number] 01/12/2020 09:16:00 AM EDT [facility] [facility]) Name Value Range Interpretation Code Description Data Areli rce(s) Supporting Document(s) Erythrocytes [#/volume] in Blood by Automated count 4.73 x10*6/UL 4.2 0-6.30 [facility] ([facility]) Leukocytes [#/volume] in Blood by Automated count 6.3 x10*3/UL 4.1-10 .9 [facility] ([facility]) MCV 85.1 fL 80.0-97.0 [facility] [facility] MCH 30.1 pg 26.0-32.0 [facility] [facility] Hemoglobin [Mass/volume] in Blood 14.2 g/dL 12.0-18.0 [facility] ([facility]) Hematocrit [Volume Fraction] of Blood by Automated count 40.3 % 3 7.0-51.0 [facility] ([facility]) MCHC 35.3 g/dL 31.0-38.0 [facility]) Platelets [#/volume] in Blood by Automated count 203 x10*3/UL 140-440 [facility] ([facility]) Erythrocyte distribution width [Ratio] by Automated count 13.1 % 11.6-13.7 [facility] ([facility]) MPV 8.1 FL 7.8-11.0 [facility] ([place] [facility]) Lymph % 20.8 % 10.0-58.5 [facility] ([place] [facility]) Neut % 72.5 % 37.0-92.0 [facility] ([place] [facility]) Mid % 6.7 % 1.7-9.3 [facility] ([place] [facility]) Neut # 4.6 x10*3/UL 2.0-7.8 [facility] ([facility]) Mid # 0.4 x10*3/UL 0.1-0.6 [facility] ([facility]) Lymph # 1.3 x10*3/UL 0.6-4.1 [facility] ([facility]) ID Date Data Source [id number] 01/12/2020 09:16:00 AM EDT [facility] ([facility]) Name Value Range Interpretation Code Description Data Areli rce(s) Supporting Document(s) Hemoglobin A1c/Hemoglobin.total in Blood Laboratory test result [facility] ([facility] [facility]) Procedure Social History Code Duration Value Status Description Data Source(s ) Smoking 12/10/2020 12:00:00 AM EDT Patient has never smoked co mpleted Patient has never smoked [facility] ([facility], ) Vital Signs ID Date Data Source UNK Name Value Range Interpretation Code Description Data Source(s) Body height 65.5 [in_i] 65.5 [in_i] [facility] ([facility]) 5'5.50" Body weight 223.00 [lb_av] 223.00 [lb_av] [facility] T ([facility]) Systolic blood pressure 128 mm[Hg] 128 mm[Hg] M [facility] ([facility]) Diastolic blood pressure 70 mm[Hg] 70 mm[Hg] [facility] ([facility]) Heart rate 64 /min 64 /min [facility] ([facility]) Body mass index (BMI) [Ratio] 36.5 kg/m2 36.5 k g/m2 [facility] ([facility]) Diastolic blood pressure 78 mm[Hg] 78 mm[Hg] [facility] ([facility]) Heart rate 79 /min 79 /min [facility] ([facility]) Body height 66 [in_i] 66 [in_i] [facility] ([facility]) 5'6" Body weight 225.00 [lb_av] 225.00 [lb_av] [facility] ([facility]) Body mass index (BMI) [Ratio] 36.3 kg/m2 36.3 k g/m2 [facility] ([facility]) [place] body weight 142 [lb_av] 142 [lb_av[facility] Body weight 102.060 kg 102.060 kg [facility] ([facility]) Body surface area Derived from formula 2.10 m2 2.10 m2 [facility] ([facility]) Oxygen saturation in Arterial blood by Pulse oximetry 97 % 97 % [facility] ([facility]) Systolic blood pressure 140 mm[Hg] 140 mm[Hg] [facility] ([facility]) Systolic blood pressure 122 mm[Hg] 122 mm[Hg] [facility] ([facility]) Diastolic blood pressure 68 mm[Hg] 68 mm[Hg] [facility] ([facility]) Heart rate 72 /min 72 /min [facility]) Body height 65.5 [in_i] 65.5 [in_i] [facility] ([facility]) 5'5.50" Body weight 230.00 [lb_av] 230.00 [lb_av] [facility] ([facility]) Body mass index (BMI) [Ratio] 37.7 kg/m2 37.7 k g/m2 [facility] ([facility]) Systolic blood pressure 130 mm[Hg] 130 mm[Hg] [facility] Diastolic blood pressure 72 mm[Hg] 72 mm[Hg] [facility] ([facility]) Heart rate 68 /min 68 /min [facility] ([facility]) Body height 65.5 [in_i] 65.5 [in_i] [facility] ([facility]) 5'5.50" Body weight 216.00 [lb_av] 216.00 [lb_av] [facility] ([facility]) Body mass index (BMI) [Ratio] 35.4 kg/m2 35.4 k g/m2 [facility] ([facility]) Body height 65.5 [in_i] 65.5 [in_i] [facility] ([facility]) 5'5.50" Body weight 211.00 [lb_av] 211.00 [lb_av] [facility] ([facility]) Body mass index (BMI) [Ratio] 34.6 kg/m2 34.6 k g/m2 [facility] ([facility])
[2021-02-18 10:25] LABS: HEMOGLOBIN 15.2 g/dl (13.5-17.5); MEAN CORPUSCULAR HEMOGLOBIN 29.5 pg (27.0-33.0); MEAN CORPUSCULAR VOLUME 89.1 fl (80.0-96.0); NEUTROPHILS % 66.3 % (36.0-66.0); PLATELET COUNT, AUTOMATED 258 10^3/uL (150-450); RED BLOOD COUNT 5.16 10^6/uL (4.30-6.10); WHITE BLOOD COUNT 9.7 10^3/uL (4.0-10.0)
[2021-02-18 10:26] LABS: BASO % 0.4 % (0.0-1.0); EOS # 0.1 10^3/uL (0.0-0.5); EOS % 1.4 % (0.0-3.0); LYMPH # 2.4 10^3/uL (1.5-5.0); LYMPH % 24.6 % (24.0-44.0); MONO # 0.6 10^3/uL (0.0-0.8); MONO % 6.2 % (2.0-8.0); NEUTROPHILS # 6.4 10^3/uL (1.5-8.5)
--- NOTE | 2021-02-18 10:50 | REP ---
INDICATION: CHEST PAIN. COMPARISON: 12/19/2018 TECHNIQUE: AP portable seated FINDINGS: The lungs are well inflated and without effusion, infiltrate, atelectasis or mass there is no lateral pleural thickening, apical scarring or pneumothorax. Heart size not enlarged for portable technique. There is no vascular redistribution or pulmonary edema. The aorta and mediastinal contours are unremarkable. There are some minor degenerative changes in the spine and shoulders. No free air under the diaphragm. IMPRESSION: 1. No acute cardiopulmonary change. <Electronically signed by Bashir Fairchild > 02/18/21 1049
[2021-02-18] MEDS ORDERED: DIGOXIN INJ 0.5 MG/2 ML AMP (J1160) IV STA (10:56)
[2021-02-18 10:57] LABS: BLOOD UREA NITROGEN 21 MG/DL (7-18); CALCIUM LEVEL 9.4 MG/DL (8.8-10.2); CARBON DIOXIDE LEVEL 26 MEQ/L (21-32); CHLORIDE LEVEL 105 MEQ/L (98-107); CREATININE FOR GFR 1.26 MG/DL (0.70-1.30); GLOMERULAR FILTRATION RATE > 60.0 (>42); GLUCOSE, FASTING 201 MG/DL (70-100); MAGNESIUM LEVEL 2.2 MG/DL (1.8-2.4); SODIUM LEVEL 138 MEQ/L (136-145)
--- OUTSIDE RECORDS SUMMARY | 2021-02-18 10:58 | CCD ---
Author Author [facility] Organization [facility] Address Unknown Phone Unavailable Care Team Providers Care Restaurant Crew Person Name Role Phone Ada Lindquist MD Unavailable [...] Unavailable Ada Lindquist MD Unavailable Unavailable Monnat POULTRY HUSBANDMAN, Guerda Unavailable Unavailable Monnat POULTRY HUSBANDMAN, Guerda Unavailable Unavailable Bryan BEAR MD Unavailable [...] Unavailable Unavailable MARY VALLES MD Unavailable Unavailable MRAY VALLES MD Unavailable Unavailable MARY VALLES MD [...] is protected by Article 27-F of the [facility] Public Health law. If you continue you may have access to information: Regarding HIV / AIDS; Provided by facilities licensed or operated by the [facility] Office of Mental Health; or Provided by the [facility] Office for People With Developmental Disabilities. If such information is present, then the following [facility] mandated warning applies: This information has been [...] law may result in a fine or intermediate sentence or both. A general authorization for [...] la torre 12/10/2020 08:00:00 AM EDT [facility] ([facility]) Outpatient Attender: Guerda Valadez NPReferrer: Lars Lindquist MD 09/12/2020 07:27:05 AM EDT [facility] Recurring Patient Attender: AGUSTINA BEAR MDReferrer: Lars Lindquist MD 09/05/2020 01:16:05 PM EDT [facility] Rec[facility]ring Patient Attender: AGUSTINA BEAR MDReferrer: Lars Lindquist MD 08/23/2020 02:23:58 PM EDT [facility] Recurring Patient Attender: AGUSTINA DONALDSONeferrer: Lars Lindquist MD 08/16/2020 01:06:38 PM EDT [facility] Outpatient Attender: Lars Elaine 08/13 10:30:00 AM EDT [facility] ([facility] ) Outpatient Attender: Lars Elaine 03/09 01:00:00 PM EST [facility] ([facility] ) Outpatient Attender: FOREIGN VALLES MDReferrer: Lars Martinez 02/15/2020 12:52:03 PM EDT [facility] Immunizations Vaccine Date Status Description Data Source(s) COVID-19 VACCINE Moderna 02/11/2021 12:00:00 AM EDT completed [facility] Vaccine Series Complete: NOThis Data was Submitted to [facility] Via [employer]. Shingrix Zoster Vaccine (HZV), Recombinant, Subunit, A djuvanted 01/31/2020 11:33:00 AM EDT completed [facility] ([facility]) This CVX code allows reporting of a vacc ination when formulation is unknown (for example, when recording a Influenza vaccination when noted on a vaccination card) 01/18/2020 11:25:00 AM EDT completed MEDEN T ([facility]) Medications Medication Brand Name Start Date Product Form Dose Route Admi nistrative Instructions Pharmacy Instructions Status Indications Reaction Description Data Source(s) [employer] Lancets Fine Point 01/07/2021 12:00:00 AM EDT active [facility] ([facility]) Cephalexin 500 MG Oral Capsule [Keflex] Keflex 03/09/2020 12:00:0 0 AM EST ORAL active [facility] ([facility]) Insurance Providers Payer name Policy type / Coverage type Policy ID Covered democrat ID Covered democrat's relationship to daly Policy Daly Plan Information [place]OM[place] [id number] [place] [id number] POM[place] [id number] [place] [id number] [place]OM[place] [id number] [place] [id number] POMCO [id number] [place] [id number] [facility] [id number] [place] [id number] POMCO [id number] [place] [id number] POMCO U [id number] Spouse [id number] POMCO [id number] [place] [id number] POMCO [id number] [facility] [id number] MEDICARE A [id number] Self [id number] T Medicare C [id number] SELF [id number] T Medicare Natl Govt Servic Medicare Primary [id number] Self [id number] Medicare Natl Govt Servic Medicare Primary [id number] Self [id number] MEDICARE [id number] SP [id number] A Medicare Natl Govt Servic Medicare Primary [id number] Self [id number] Medicare Natl Govt Servic Medicare Primary [id number] Self [id number] MEDICARE [id number] Medicare Natl Govt Servic Medicare Primary [id number] Self [id number] Medicare Natl Govt Servic Medicare Primary [id number] Self MEDICARE A [id number] Self [id number] A MEDICARE [id number] Isis [id number] T Umr ([place]) Medigap Part B [id number] Family Dependent [id number] UMR [facility] [id number] WI2 [id number] UMR F [id number] SPOUSE [id number] UMR F [id number] SELF [id number] UMR F [id number] SELF [id number] [place] Medigap Part B [id number] Family Dependent [id number] Medicare Natl Gov't Servi Medicare Primary [id number] Self [id number] [place] Ppo Medigap Part B [id number] Family Dependent [id number] [place] Ppo Medigap Part B [id number] Family Dependent [id number] MEDICARE [id number] SP [id number] T Medicare Natl Gov't Servi Medicare Primary [id number] Self [place] Commercial [id number] Family Dependent [place] Ppo Medigap Part B [id number] Family Dependent 910 POMCO O [id number] U [id number] [facility] Jurisdiction A [facility] C [id number] SELF [id number] Medicare C [id number] SELF [id number] T27 SELF PAY ONLY [id number] SP [id number] UMR O [id number] S [id number] MEDICARE C [id number] S [id number] [id number] Umr/Uhc/[place] Medigap Part B [id number] Family Dependent [id number] Medicare Natl Gov't Servi Medicare Primary [id number] Self [id number] Umr/Uhc/[place] Medigap Part B [id number] Family Dependent [id number] Medicare Natl Gov't Servi Medicare Primary [id number] Self [id number] [place]/Umr (Old) Medigap Part B [id number] Family Dependent [id number] Umr/Uhc/[place] Medigap Part B [id number] Family Dependent [id number] Medicare Natl Gov't Servi Medicare Primary [id number] Self 1 [id number] [place] Medigap Part B [id number] Family Dependent [id number] Umr/Uhc/[place] Medigap Part B [id number] Family Dependent [id number] Medicare Natl Gov't Servi Medicare Primary [id number] Self 0 [id number] [place]/Umr (Old) Medigap Part B [id number] Family Dependent [id number] UMR [facility] [id number] Umr Commercial [id number] Self [id number] Medicare [facility] [place] Medicare Primary [id number] Self [id number] [place]/Umr (Old) Medigap Part B [id number] Family Dependent [id number] MEDICARE C [id number] S [id number] A [employer] PPO O [id number] S [id number] [place] Medigap Part B [id number] Family Dependent [id number] Medicare Natl Gov't Servi Medicare Primary [id number] Self 0 [id number] [place] Medigap Part B [id number] Family Dependent [id number] Medicare Natl Gov't Servi Medicare Primary [id number] Self 0 [id number] Problems, Conditions, and Diagnoses No Information Surgeries/Procedures Procedure Description Date Indications Data Source(s) OFFICE OUTPATIENT VISIT 15 MINUTES 12/10/2020 12:00:00 AM EDT [facility] ([facility] ) OFFICE OUTPATIENT VISIT 25 MINUTES 08/13/2020 12:00:00 AM EDT [facility] ([facility]) Results ID Date Data Source [id number] 01/10/2021 12:00:00 AM EDT [facility] Name Value Range Interpretation Code Description Data Areli rce(s) Supporting Document(s) SARS-CoV2 Rapid Antigen Positive [facility] This lab was reported by [facility][Note 3][facility]. ID Date Data Source [id number] 01/07/2021 11:46:00 AM EDT [facility] ([facility]) Name Value Range Interpretation Code Description Data Raeli rce(s) Supporting Document(s) Urine Creatinine 69.8 mg/dL 30.0-125.0 [facility] ([facility]) Microalb/Creat Ratio 11.6 ug/mg 0.0-30.0 [facility] ( [facility]) Microalbumin Urine 8.1 mg/L 1.3-20.0 [facility] ([facility]) ID Date Data Source [id number] 01/04/2021 07:58:00 AM EDT [facility] ([facility]) Name Value Range Interpretation Code Description Data Areli rce(s) Supporting Document(s) Thyrotropin [Units/volume] in Serum or Plasma by Detec tion limit <= 0.05 mIU/L 3.75 uIU/mL 0.36-3.74 [facility] ([facility] ) ID Date Data Source [id number] 01/04/2021 07:58:00 AM EDT [facility] ([facility]) Name Value Range Interpretation Code Description Data Areli rce(s) Supporting Document(s) Cholesterol [Mass/volume] in Serum or Plasma 188 mg/dL 131-200 [facility] ([facility]) Triglyceride [Mass/volume] in Serum or Plasma 261 mg/dL 30-150 [facility] ([facility]) Cholesterol in HDL [Mass/volume] in Serum or Plasma 37 mg/dL 35-60 [facility] ([facility]) Cholesterol in LDL [Mass/volume] in Serum or Plasma by calcu lation 99 CALC 50-159 [facility] ([facility]) ID Date Data Source [id number] 01/04/2021 07:58:00 AM EDT [facility] ([facility]) Name Value Range Interpretation Code Description Data Areli rce(s) Supporting Document(s) Glucose [Mass/volume] in Serum or Plasma 122 mg/dL 74-99 [facility] ([facility]) 100-125 mg/dL PRE-DIABETES/FASTING >126 mg/dL DIABETES/FASTING Creatinine 1.1 mg/dL 0.6-1.3 [facility] ([facility]) Urea nitrogen [Mass/volume] in Serum or Plasma 22 mg/dL 7-18 [facility] ([facility]) Sodium [Moles/volume] in Serum or Plasma 142 meq/L 136-145 [facility] ([facility]) Potassium [Moles/volume] in Serum or Plasma 4.1 meq/L 3.5-5.1 [facility] ([facility]) Carbon dioxide, total [Moles/volume] in Serum or Plasma 31 meq/L 21 -32 [facility] ([facility]) Chloride [Moles/volume] in Serum or Plasma 106 meq/L 98-107 [facility] ([facility]) Alkaline phosphatase isoenzyme [Units/volume] in Serum or Pl asma 63 mg/dL 46-116 [facility] ([facility]) Calcium [Mass/volume] in Serum or Plasma 9.0 mg/dL 8.5-10.1 [facility] ([facility]) Total Bilirubin 0.8 mg/dL 0.2-1.0 [facility] ([facility]) Aspartate aminotransferase [Enzymatic activity/volume] in Serum or Plasma 19 U/L 15-37 [facility] ([facility] ) Alanine aminotransferase [Enzymatic activity/volume] in Seru m or Plasma 54 U/L 12-78 [facility] A/G Ratio 1.52 CALC 1.00-1.90 [facility] Proteinase 3 Ab [Units/volume] in Serum 6.3 g/dL 6.4-8.2 [facility] Albumin [Mass/volume] in Serum or Plasma 3.8 g/dL 3.4-5.0 [facility] Glomerular filtration rate/1.73 sq M pre dicted among non-blacks [Volume Rate/Area] in Serum or Plasma by Creatinine-based formula (MDRD) Laboratory test result [facility] Glomerular filtration rate/1.73 sq M pre dicted among blacks [Volume Rate/Area] in Serum or Plasma by Creatinine-based formula (MDRD) Laboratory test result [facility] <content>CHRONIC KIDNEY DISEASE STAGING PER NKF</content>
<content></content>
<content>STAGE I & II GFR >= 60 NORMAL TO MILDLY DECREASED</content>
<content>STAGE III GFR 30-59 MODERATELY DECREASED</content>
<content>STAGE IV GFR 15-29 SEVERELY DECREASED</content>
<content>STAGE V GFR <15 VERY LITTLE GFR LEFT</content>
<content>ESRD GFR <15 ON MENTAL HEALTH CONSULTANT</content>
<content></content> ID Date Data Source [id number] 01/04/2021 07:58:00 AM EDT [facility] Name Value Range Interpretation Code Description Data Areli rce(s) Supporting Document(s) Hemoglobin A1c/Hemoglobin.total in Blood 6.7 % [facility] Lab Result Notes: Pre-Diabetes 5.7 - 6.4 % Diabetes = or > 6.5% Glucose mean value [Mass/volume] in Blood Estimated fr om glycated hemoglobin 146 mg/dL 60-110 [facility] ID Date Data Source [id number] 01/04/2021 07:58:00 AM EDT [facility] ([facility]) Name Value Range Interpretation Code Description Data Areli rce(s) Supporting Document(s) Erythrocytes [#/volume] in Blood by Automated count 4.73 x10*6/UL 4.2 0-6.30 [facility] ([facility]) Hemoglobin [Mass/volume] in Blood 14.1 g/dL 12.0-18.0 [facility] ([facility]) Leukocytes [#/volume] in Blood by Automated count 4.6 x10*3/UL 4.1-10 .9 [facility] ([facility]) Hematocrit [Volume Fraction] of Blood by Automated count 41.4 % 3 7.0-51.0 [facility] ([facility]) MCH 29.9 pg 26.0-32.0 [facility] MCV 87.5 fL 80.0-97.0 [facility] Erythrocyte distribution width [Ratio] by Automated count 12.7 % 11.6-13.7 [facility] ([facility]) MCHC 34.2 g/dL 31.0-38.0 [facility] MPV 8.4 FL 7.8-11.0 [facility]) Platelets [#/volume] in Blood by Automated count 182 x10*3/UL 140-440 [facility] ([facility]) Lymph % 33.9 % 10.0-58.5 [facility] Mid % 6.1 % 1.7-9.3 [facility] Neut % 60.0 % 37.0-92.0 [facility] Lymph # 1.5 x10*3/UL 0.6-4.1 [facility] ([facility]) Neut # 2.7 x10*3/UL 2.0-7.8 [facility] ([facility]) Mid # 0.4 x10*3/UL 0.1-0.6 [facility] ([facility]) ID Date Data Source [id number] 01/04/2021 07:58:00 AM EDT [facility]) Name Value Range Interpretation Code Description Data Areli rce(s) Supporting Document(s) Hemoglobin A1c/Hemoglobin.total in Blood Laboratory test result [facility] ([facility]) ID Date Data Source [id number] 01/04/2021 07:57:00 AM EDT [facility] ([facility]) Name Value Range Interpretation Code Description Data Areli rce(s) Supporting Document(s) Prostate specific Ag [Mass/volume] in Serum or Plasma 1.42 ng/mL [facility] ([facility]) This assay was performed on the Siemens Dimension EXL using the B- Galactosidase/CPRG methodology and should not be compared interchangeably with other methods. The PSA should not be used alone as a screening test for the presence or absence of malignant disease. ID Date Data Source [id number] 09/12/2020 07:27:05 AM EDT [facility] PCName: Kermit FongRadhaOB: 1950Provider: Harjit Valadez: 09/05/2020 Reason For VisitPaerika Jones is here today for bilat thumb pain. Kermit had his second Covid vaccine on June 2020. Kermit Jones is an established patient here for follow up. 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 I have explained that osteoarthritis is a chronic, progressive illness of worsening pain and function over time. 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 I have explained that management options [...] document was dictated and electronically signed using [employer] software. A reasonable attempt at proof reading has been made to minimize errors. Please call with any questions. Signatures Electronically signed by : Guerda Valadez NP; Sep 05 2020 1:55PM EST (Author) Electronically signed by : Bryan Valles M.D.; Sep 12 2020 7:27AM EST Name Value Range Interpretation Code Description Data Areli rce(s) Supporting Document(s) ID Date Data Source [id number] 08/10/2020 08:06:00 AM EDT [facility] ([facility]) Name Value Range Interpretation Code Description Data Areli rce(s) Supporting Document(s) Thyrotropin [Units/volume] in Serum or Plasma by Detec tion limit <= 0.05 mIU/L 3.73 uIU/mL 0.36-3.74 [facility] ([facility] ) ID Date Data Source [id number] 08/10/2020 08:06:00 AM EDT [facility] ([facility]) Name Value Range Interpretation Code Description Data Areli rce(s) Supporting Document(s) Cholesterol [Mass/volume] in Serum or Plasma 209 mg/dL 131-200 [facility] ([facility]) Triglyceride [Mass/volume] in Serum or Plasma 338 mg/dL 30-150 [facility] ([facility]) Cholesterol in HDL [Mass/volume] in Serum or Plasma 37 mg/dL 35-60 [facility] ([facility]) Cholesterol in LDL [Mass/volume] in Serum or Plasma by calcu lation 104 CALC 50-159 [facility] ([facility]) ID Date Data Source [id number] 08/10/2020 08:06:00 AM EDT [facility] ([facility]) Name Value Range Interpretation Code Description Data Areli rce(s) Supporting Document(s) Glucose [Mass/volume] in Serum or Plasma 168 mg/dL 74-99 [facility] ([facility]) 100-125 mg/dL PRE-DIABETES/FASTING >126 mg/dL DIABETES/FASTING Urea nitrogen [Mass/volume] in Serum or Plasma 25 mg/dL 7-18 [facility] ([facility]) Potassium [Moles/volume] in Serum or Plasma 3.9 meq/L 3.5-5.1 [facility] ([facility]) Sodium [Moles/volume] in Serum or Plasma 139 meq/L 136-145 [facility] ([facility]) Creatinine 1.2 mg/dL 0.6-1.3 [facility] ([facility]) Calcium [Mass/volume] in Serum or Plasma 8.9 mg/dL 8.5-10.1 [facility] ([facility]) Carbon dioxide, total [Moles/volume] in Serum or Plasma 29 meq/L 21 -32 [facility] ([facility]) Chloride [Moles/volume] in Serum or Plasma 102 meq/L 98-107 [facility] ([facility]) Alkaline phosphatase isoenzyme [Units/volume] in Serum or Pl asma 70 mg/dL 46-116 [facility] ([facility]) Total Bilirubin 0.9 mg/dL 0.2-1.0 [facility] ([facility]) Aspartate aminotransferase [Enzymatic activity/volume] in Serum or Plasma 20 U/L 15-37 [facility] ([facility] ) Alanine aminotransferase [Enzymatic activity/volume] in Seru m or Plasma 48 U/L 12-78 [facility] Albumin [Mass/volume] in Serum or Plasma 4.2 g/dL 3.4-5.0 [facility] Proteinase 3 Ab [Units/volume] in Serum 6.9 g/dL 6.4-8.2 [facility] A/G Ratio 1.56 CALC 1.00-1.90 [facility] Glomerular filtration rate/1.73 sq M pre dicted among non-blacks [Volume Rate/Area] in Serum or Plasma by Creatinine-based formula (MDRD) 60 mL/min [facility] Glomerular filtration rate/1.73 sq M pre dicted among blacks [Volume Rate/Area] in Serum or Plasma by Creatinine-based formula (MDRD) Laboratory test result [facility] ([facility]) <content>CHRONIC KIDNEY DISEASE STAGING PER NKF</content>
<content></content>
<content>STAGE I & II GFR >= 60 NORMAL TO MILDLY DECREASED</content>
<content>STAGE III GFR 30-59 MODERATELY DECREASED</content>
<content>STAGE IV GFR 15-29 SEVERELY DECREASED</content>
<content>STAGE V GFR <15 VERY LITTLE GFR LEFT</content>
<content>ESRD GFR <15 ON MENTAL HEALTH CONSULTANT</content>
<content></content> ID Date Data Source [id number] 08/10/2020 08:06:00 AM EDT [facility] ([facility]) Name Value Range Interpretation Code Description Data Areli rce(s) Supporting Document(s) Hemoglobin A1c/Hemoglobin.total in Blood 7.0 % [facility] ([facility]) Lab Result Notes: Pre-Diabetes 5.7 - 6.4 % Diabetes = or > 6.5% Glucose mean value [Mass/volume] in Blood Estimated fr om glycated hemoglobin 154 mg/dL 60-110 [facility] ([facility] ) ID Date Data Source [id number] 08/10/2020 08:06:00 AM EDT [facility] ([facility]) Name Value Range Interpretation Code Description Data Areli rce(s) Supporting Document(s) Leukocytes [#/volume] in Blood by Automated count 5.2 x10*3/UL 4.1-10 .9 [facility] ([facility]) Erythrocytes [#/volume] in Blood by Automated count 5.04 x10*6/UL 4.2 0-6.30 [facility] ([facility]) Hemoglobin [Mass/volume] in Blood 15.0 g/dL 12.0-18.0 [facility] Hematocrit [Volume Fraction] of Blood by Automated count 43.6 % 3 7.0-51.0 [facility] ([facility]) MCV 86.6 fL 80.0-97.0 [facility] [facility] MCH 29.7 pg 26.0-32.0 [facility] ([facility]) MCHC 34.3 g/dL 31.0-38.0 [facility] ([facility]) Platelets [#/volume] in Blood by Automated count 205 x10*3/UL 140-440 [facility] Erythrocyte distribution width [Ratio] by Automated count 13.1 % 11.6-13.7 [facility] ([facility]) MPV 8.7 FL 7.8-11.0 [facility] ([facility]) Mid % 5.7 % 1.7-9.3 [facility] ([facility]) Lymph % 28.3 % 10.0-58.5 [facility] ([facility]) Neut % 66.0 % 37.0-92.0 [facility] ([facility]) Lymph # 1.4 x10*3/UL 0.6-4.1 [facility] ([facility]) Neut # 3.4 x10*3/UL 2.0-7.8 [facility] ([facility]) Mid # 0.4 x10*3/UL 0.1-0.6 [facility] ([facility]) ID Date Data Source [id number] 08/10/2020 08:06:00 AM EDT [facility] ([facility]) Name Value Range Interpretation Code Description Data Areli rce(s) Supporting Document(s) Hemoglobin A1c/Hemoglobin.total in Blood Laboratory test result [facility] ID Date Data Source [id number] 03/29/2020 12:00:00 AM EST [facility] Name Value Range Interpretation Code Description Data Areli rce(s) Supporting Document(s) [facility] This lab was ordered by [facility] and reported by [facility]. ID Date Data Source [id number] 03/06/2020 10:30:00 AM EST [facility]) Name Value Range Interpretation Code Description Data Areli rce(s) Supporting Document(s) Laboratory test finding (navigational concept) Laboratory test result [facility] Test: COVID-19 Nasal/Naspharynx Result: NOT DETECTED Reference Units: Not detected Note: Please consider re-collection of a new specimen, if clinically indicated. Note: The COVID-19 assay is under Emergency Use Authorization(EUA) by the U.S. Food and Drug Administration. [facility] is designated as a high complexity laboratory by the Clinical Laboratory Improvement Amendments of 1988(CLIA) and is qualified to perform this test. ASSAY INFORMATION: Real Time RT-PCR or TMA. ID Date Data Source [id number] 03/06/2020 12:00:00 AM EST [facility] Name Value Range Interpretation Code Description Data Areli rce(s) Supporting Document(s) 2019-nCoV RNA XXX ALBERTA+probe-Imp [facility] This lab was ordered by [facility] and reported by [email or web address]. 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 Work / School NoteThe percentage of temporary impairment is 0%. The patient is working at this time. DisclaimersThis document was dictated and electronically signed using [employer] software. A reasonable attempt at proof reading has been made to minimize errors. Please call with any questions. Signatures Electronically signed by : Bryan Valles M.D.; Feb 15 2020 12:52PM EST (Author) Name Value Range Interpretation Code Description Data Areli rce(s) Supporting Document(s) ID Date Data Source [id number] 01/12/2020 09:17:00 AM EDT [facility] Name Value Range Interpretation Code Description Data Areli rce(s) Supporting Document(s) Prostate specific Ag [Mass/volume] in Serum or Plasma 1.48 ng/mL [facility] ([facility]) This assay was performed on the [employer] EXL using the B- Galactosidase/CPRG methodology and should not be compared interchangeably with other methods. The PSA should not be used alone as a screening test for the presence or absence of malignant disease. ID Date Data Source [id number] 01/12/2020 09:16:00 AM EDT [facility] ([facility]) Name Value Range Interpretation Code Description Data Areli rce(s) Supporting Document(s) Microalbumin Urine 7.1 mg/L 1.3-20.0 [facility] Microalb/Creat Ratio 6.1 ug/mg 0.0-30.0 [facility] Urine Creatinine 116.8 mg/dL 30.0-125.0 [facility] ([facility]) ID Date Data Source [id number] 01/12/2020 09:16:00 AM EDT [facility] ([facility]) Name Value Range Interpretation Code Description Data Areli rce(s) Supporting Document(s) Thyrotropin [Units/volume] in Serum or Plasma by Detec tion limit <= 0.05 mIU/L 2.48 uIU/mL 0.36-3.74 [facility] ([facility] ) ID Date Data Source [id number] 01/12/2020 09:16:00 AM EDT [facility] ([facility]) Name Value Range Interpretation Code Description Data Areli rce(s) Supporting Document(s) Triglyceride [Mass/volume] in Serum or Plasma 228 mg/dL 30-150 [facility] ([facility]) Cholesterol [Mass/volume] in Serum or Plasma 174 mg/dL 131-200 [facility] ([facility]) Cholesterol in HDL [Mass/volume] in Serum or Plasma 38 mg/dL 35-60 [facility] ([facility]) Cholesterol in LDL [Mass/volume] in Serum or Plasma by calcu lation 90 CALC 50-159 [facility] ([facility]) ID Date Data Source [id number] 01/12/2020 09:16:00 AM EDT [facility] ([facility]) Name Value Range Interpretation Code Description Data Areli rce(s) Supporting Document(s) Glucose [Mass/volume] in Serum or Plasma 160 mg/dL 74-99 [facility] ([facility]) 100-125 mg/dL PRE-DIABETES/FASTING >126 mg/dL DIABETES/FASTING Creatinine 1.3 mg/dL 0.6-1.3 [facility] [facility] Sodium [Moles/volume] in Serum or Plasma 140 meq/L 136-145 [facility] ([facility]) Urea nitrogen [Mass/volume] in Serum or Plasma 19 mg/dL 7-18 [facility] ([facility]) Potassium [Moles/volume] in Serum or Plasma 3.9 meq/L 3.5-5.1 [facility] ([facility]) Carbon dioxide, total [Moles/volume] in Serum or Plasma 29 meq/L 21 -32 [facility] ([facility]) Calcium [Mass/volume] in Serum or Plasma 9.0 mg/dL 8.5-10.1 [facility] ([facility]) Chloride [Moles/volume] in Serum or Plasma 102 meq/L 98-107 [facility] ([facility]) Alanine aminotransferase [Enzymatic activity/volume] in Seru m or Plasma 27 U/L 12-78 [facility] ([facility]) Alkaline phosphatase isoenzyme [Units/volume] in Serum or Pl asma 69 mg/dL 46-116 [facility] ([facility]) Total Bilirubin 0.9 mg/dL 0.2-1.0 [facility] ([facility]) Aspartate aminotransferase [Enzymatic activity/volume] in Serum or Plasma 16 U/L 15-37 [facility] ([facility] ) A/G Ratio 1.41 CALC 1.00-1.90 [facility] ([facility] [facility]) Proteinase 3 Ab [Units/volume] in Serum 6.5 g/dL 6.4-8.2 [facility] ([facility]) Albumin [Mass/volume] in Serum or Plasma 3.8 g/dL 3.4-5.0 [facility] Glomerular filtration rate/1.73 sq M pre dicted among non-blacks [Volume Rate/Area] in Serum or Plasma by Creatinine-based formula (MDRD) 55 mL/min [facility] ([facility]) Glomerular filtration rate/1.73 sq M pre dicted among blacks [Volume Rate/Area] in Serum or Plasma by Creatinine-based formula (MDRD) Laboratory test result [facility] <content>CHRONIC KIDNEY DISEASE STAGING PER NKF</content>
<content></content>
<content>STAGE I & II GFR >= 60 NORMAL TO MILDLY DECREASED</content>
<content>STAGE III GFR 30-59 MODERATELY DECREASED</content>
<content>STAGE IV GFR 15-29 SEVERELY DECREASED</content>
<content>STAGE V GFR <15 VERY LITTLE GFR LEFT</content>
<content>ESRD GFR <15 ON MENTAL HEALTH CONSULTANT</content>
<content></content> ID Date Data Source [id number] 01/12/2020 09:16:00 AM EDT [facility] ([facility]) Name Value Range Interpretation Code Description Data Areli rce(s) Supporting Document(s) Hemoglobin A1c/Hemoglobin.total in Blood 6.0 % [facility] Lab Result Notes: Pre-Diabetes 5.7 - 6.4 % Diabetes = or > 6.5% Glucose mean value [Mass/volume] in Blood Estimated fr om glycated hemoglobin 125 mg/dL 60-110 [facility] ID Date Data Source [id number] 01/12/2020 09:16:00 AM EDT [facility] Name Value Range Interpretation Code Description Data Areli rce(s) Supporting Document(s) Erythrocytes [#/volume] in Blood by Automated count 4.73 x10*6/UL 4.2 0-6.30 [facility] ([facility]) Leukocytes [#/volume] in Blood by Automated count 6.3 x10*3/UL 4.1-10 .9 [facility] ([facility]) MCV 85.1 fL 80.0-97.0 [facility] [facility] MCH 30.1 pg 26.0-32.0 [facility] [facility] Hemoglobin [Mass/volume] in Blood 14.2 g/dL 12.0-18.0 [facility] ([facility]) Hematocrit [Volume Fraction] of Blood by Automated count 40.3 % 3 7.0-51.0 [facility] ([facility]) MCHC 35.3 g/dL 31.0-38.0 [facility] [facility] Platelets [#/volume] in Blood by Automated count 203 x10*3/UL 140-440 [facility] ([facility]) Erythrocyte distribution width [Ratio] by Automated count 13.1 % 11.6-13.7 [facility] ([facility]) MPV 8.1 FL 7.8-11.0 [facility] [facility] Lymph % 20.8 % 10.0-58.5 [facility] [facility] Neut % 72.5 % 37.0-92.0 [facility] [facility] Mid % 6.7 % 1.7-9.3 [facility] [facility] Neut # 4.6 x10*3/UL 2.0-7.8 [facility] ([facility]) Mid # 0.4 x10*3/UL 0.1-0.6 [facility] ([facility]) Lymph # 1.3 x10*3/UL 0.6-4.1 [facility] ([facility]) ID Date Data Source [id number] 01/12/2020 09:16:00 AM EDT [facility] ([facility]) Name Value Range Interpretation Code Description Data Areli rce(s) Supporting Document(s) Hemoglobin A1c/Hemoglobin.total in Blood Laboratory test result [facility]) Procedure Social History Code Duration Value Status Description Data Source(s ) Smoking 12/10/2020 12:00:00 AM EDT Patient has never smoked co mpleted Patient has never smoked [facility] ([facility], ) Vital Signs ID Date Data Source UNK Name Value Range Interpretation Code Description Data Source(s) Body height 65.5 [in_i] 65.5 [in_i] [facility] ([facility]) 5'5.50" Systolic blood pressure 128 mm[Hg] 128 mm[Hg] M [facility] ([facility]) Diastolic blood pressure 70 mm[Hg] 70 mm[Hg] [facility] ([facility]) Heart rate 64 /min 64 /min [facility] ([facility]) Body mass index (BMI) [Ratio] 36.5 kg/m2 36.5 k g/m2 [facility] ([facility]) Body weight 223.00 [lb_av] 223.00 [lb_av] [facility] T ([facility]) Diastolic blood pressure 78 mm[Hg] 78 mm[Hg] [facility] ([facility]) Body weight 102.060 kg 102.060 kg [facility] ([facility]) Heart rate 79 /min 79 /min [facility] ([facility]) Body height 66 [in_i] 66 [in_i] [facility] ([facility]) 5'6" Body weight 225.00 [lb_av] 225.00 [lb_av] [facility] T ([facility]) Body mass index (BMI) [Ratio] 36.3 kg/m2 36.3 k g/m2 [facility] ([facility]) [place] body weight 142 [lb_av] 142 [lb_av] [facility] Oxygen saturation in Arterial blood by Pulse oximetry 97 % 97 % [facility] ([facility]) Systolic blood pressure 140 mm[Hg] 140 mm[Hg] M [facility] ([facility]) Body surface area Derived from formula 2.10 m2 2.10 m2 [facility] ([facility]) Systolic blood pressure 122 mm[Hg] 122 mm[Hg] M [facility] ([facility]) Diastolic blood pressure 68 mm[Hg] 68 mm[Hg] [facility] ([facility]) Heart rate 72 /min 72 /min [facility] ([facility]) Body height 65.5 [in_i] 65.5 [in_i] [facility] ([facility]) 5'5.50" Body weight 230.00 [lb_av] 230.00 [lb_av] [facility] T ([facility]) Body mass index (BMI) [Ratio] 37.7 kg/m2 37.7 k g/m2 [facility]) Systolic blood pressure 130 mm[Hg] 130 mm[Hg] [facility] Diastolic blood pressure 72 mm[Hg] 72 mm[Hg] [facility]) Heart rate 68 /min 68 /min [facility] ([facility]) Body height 65.5 [in_i] 65.5 [in_i] [facility] ([facility]) 5'5.50" Body weight 216.00 [lb_av] 216.00 [lb_av] [facility] T ([facility]) Body mass index (BMI) [Ratio] 35.4 kg/m2 35.4 k g/m2 [facility] ([facility]) Body height 65.5 [in_i] 65.5 [in_i] [facility] ([facility]) 5'5.50" Body weight 211.00 [lb_av] 211.00 [lb_av] [facility] T ([facility]) Body mass index (BMI) [Ratio] 34.6 kg/m2 34.6 k g/m2 [facility] ([facility])
[2021-02-18] MEDS ORDERED: APIXABAN 5 MG TAB (ELIQUIS) PO ONE (12:25)
[2021-02-18] MEDS: METOPROLOL 5 MG/5 ML VIAL IV SCH ×3 (12:25→12:37)
[2021-02-18] MEDS ORDERED: DIGO0.253 PO (13:58)
[2021-02-18] MEDS ORDERED: ELIQ5TAB PO (13:58)
[2021-02-18] MEDS ORDERED: ATEN25TA PO (13:58)
[2021-02-18 14:21] VITALS: BP 113/77
--- NOTE | 2021-02-19 07:57 | ECGEPIP ---
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
== END 2021-02-18 14:36 | disposition home or self-care (01) ==
LOC: M ED 10:53
DX: I48.92 Unspecified atrial flutter (principal); I44.30 Unspecified atrioventricular block; E11.9 Type 2 diabetes mellitus without complications; I10 Essential (primary) hypertension; C85.93 Non-Hodgkin lymphoma, unspecified, intra-abdominal lymph nodes; Z79.899 Other long term (current) drug therapy; Z79.4 Long term (current) use of insulin
CPT/HCPCS: 71045; 80048; 83735; 84443; 84484; 85025; 93005; 93041; 94760; 96374; 99285; J1160

== ENCOUNTER → 2021-08-23 | Outpatient (CLI) | payer MEDICARE, OTHER ==
[~2021-08-23] MED LIST changes: +ATEN25TA PO; +DIGO0.253 PO; +ELIQ5TAB PO
[2021-08-23 12:31] LABS: BASO % 0.4 % (0.0-1.0); EOS # 0.1 10^3/uL (0.0-0.5); EOS % 1.9 % (0.0-3.0); HEMATOCRIT 42.1 % (42.0-52.0); LYMPH % 28.6 % (24.0-44.0); MEAN CORPUSCULAR HGB CONC 33.3 g/dl (32.0-36.5); MEAN CORPUSCULAR VOLUME 90.1 fl (80.0-96.0); MONO # 0.4 10^3/uL (0.0-0.8); MONO % 5.4 % (2.0-8.0); NEUTROPHILS # 4.2 10^3/uL (1.5-8.5); NEUTROPHILS % 62.1 % (36.0-66.0); PLATELET COUNT, AUTOMATED 233 10^3/uL (150-450); RED BLOOD COUNT 4.67 10^6/uL (4.30-6.10); WHITE BLOOD COUNT 6.8 10^3/uL (4.0-10.0)
[2021-08-23 12:58] LABS: ALBUMIN 3.8 GM/DL (3.2-5.2); ALT/SGPT 63 U/L (12-78); BILIRUBIN,TOTAL 0.7 MG/DL (0.2-1.0); BLOOD UREA NITROGEN 14 MG/DL (7-18); CALCIUM LEVEL 9.4 MG/DL (8.8-10.2); CARBON DIOXIDE LEVEL 28 MEQ/L (21-32); CHLORIDE LEVEL 108 MEQ/L (98-107); CREATININE FOR GFR 1.01 MG/DL (0.70-1.30); GLOMERULAR FILTRATION RATE > 60.0 (>42); GLUCOSE, FASTING 144 MG/DL (70-100); POTASSIUM SERUM 4.4 MEQ/L (3.5-5.1); SODIUM LEVEL 142 MEQ/L (136-145); TOTAL PROTEIN 6.3 GM/DL (6.4-8.2)
== END ==
LOC: M LAB 11:35
PROVIDERS: ATTEND Internal Medicine Hematology
DX: C83.07 Small cell B-cell lymphoma, spleen (principal); C85.93 Non-Hodgkin lymphoma, unspecified, intra-abdominal lymph nodes

== ENCOUNTER → 2021-10-11 | Outpatient (REF) | payer MEDICARE, OTHER | LOC: M WUC 13:15 | PROVIDERS: ATTEND Nurse Practitioner Family | DX: I48.92 Unspecified atrial flutter (principal) ==

== ENCOUNTER 2024-11-28 09:17 | Day surgery (SDC) | payer MEDICARE, OTHER ==
[~2024-11-28] VITALS: Ht 167.6 cm; Wt 94.3 kg
[~2024-11-28 09:17] MED LIST changes: +ATOR1TAB19 PO; +FERR1TAB8 PO; -FLOM0.4C39 PO; +GABA-1172 PO; -GABA-282 PO; -GLIM1TAB4 PO; +GLIM1TAB84 PO; +INDA1.253 PO; -INDA125TA PO; +IRON325T2 PO; +SEMA1PEN2; +SYNT75TA PO; +TAMS-18 PO; +TAMS1CAP17 PO
[2024-11-28] MEDS ORDERED: LIDOCAINE 1% MDV 20 ML VIAL As Ordered ONE (11:00)
[2024-11-28 11:35] VITALS: TEMP 97.2
[2024-11-28 11:55] VITALS: BP 113/60; O2SAT 96
== END 2024-11-28 12:03 | disposition home or self-care (01) ==
LOC: M OPP 09:17
PROVIDERS: ATTEND Internal Medicine Gastroenterology
DX: K57.30 Diverticulosis of large intestine without perforation or abscess without bleeding (principal); K64.0 First degree hemorrhoids; Z86.0100 Personal history of colon polyps, unspecified; D50.9 Iron deficiency anemia, unspecified; G47.30 Sleep apnea, unspecified; Z79.01 Long term (current) use of anticoagulants; Z79.4 Long term (current) use of insulin; Z79.84 Long term (current) use of oral hypoglycemic drugs; Z79.85 Long-term (current) use of injectable non-insulin antidiabetic drugs; Z79.899 Other long term (current) drug therapy
CPT/HCPCS: 43239; 45378; 88305; J3010